=== PATIENT | male | born 1965 | race Caucasian/White ===

== ENCOUNTER 2019-12-14 08:25 | Outpatient (CLI) | payer MEDICARE, SELFPAY ==
--- NOTE | ~2019-12-14 | CT_ITS ---
EXAMINATION: CT soft tiss nk chst ab pel w EXAM DATE: 12/14/2019 09:21 INDICATION: Lymphadenopathy. Body swelling. TECHNIQUE: Spiral CT of the neck, chest, abdomen and pelvis was performed following intravenous injec tion of 100 mL Omnipaque 350. Axial, coronal and sagittal images of the neck were reviewed. Axial, coronal and sagittal images of the chest were reviewed. Coronal maximum intensity pixel images of ch est reviewed. Axial, coronal and sagittal images of the abdomen and pelvis were reviewed. The dose- length product (DLP) for this examination was 1977.11 mGy-cm. The exposure was tailored according to patient size (auto mA exposure control), and iterative reconstruction (ASIR) was used as additional dose reduction technique. There is no prior study for comparison. FINDINGS: NECK: The thyroid gland is unremarkable. There is a lymph node in the right posterior cervical tria ngle, level 5A, measuring 1.3 x 0.9 cm. This is the largest cervical lymph node identified and is bor derline enlarged. There is a left posterolateral suboccipital subcutaneous lymph node measuring 6 x 1 0 mm. The airway is unremarkable. Parapharyngeal and pre-glottic fat planes are preserved. The op acified vasculature is patent. Visualized sinuses and mastoid air cells are well aerated. There i s cervical spondylosis. CHEST: Dependent groundglass subsegmental atelectasis. There are no pleural or pericardial effusion s. There is a 6 mm nodule projecting into the lumen of the trachea from the anterior tracheal wall, about 2 cm above the david, which measures fat attenuation, but does appear to be a mass. Probably more likely benign given the density but attention to this on follow-up. Small amount of left lower l obe endobronchial debris. There is no mediastinal, hilar or axillary lymphadenopathy. There is no pneumothorax. Heart normal in size. No evidence of coronary arterial calcification. ABDOMEN PELVIS: The liver, spleen, adrenal glands and pancreas are unremarkable. Gallbladder is unre markable. No biliary obstruction. Portal and splenic veins are patent. Kidneys enhance symmetrical ly. There is no hydronephrosis. The prostate is unremarkable. The bladder is unremarkable. There is no retroperitoneal or pelvic lymphadenopathy. There is mild scattered arteriosclerotic disease. The appendix is normal. The stomach and small bowel are unremarkable. There is mild scattered coloni c diverticulosis. There is no adjacent inflammatory change to suggest diverticulitis. No free intra peritoneal gas. There are no osteoblastic or osteolytic lesions identified. Chronic bilateral L5 sp ondylolysis. Only 2 mm anterolisthesis L5 on S1. IMPRESSION: 1. Borderline enlarged right posterior cervical lymph node, some other smaller cervical lymph nodes. Clinical correlation and consider histologic sampling if indicated. 2. Note chest, abdomen or pelvis lymphadenopathy. Reviewed, dictated and finalized at location B. CTICIDE MAKER
[2019-12-14 10:19] LABS: Immunoglobulin A 305 mg/dL (70-400); Immunoglobulin G 793 mg/dL (700-1600)
[2019-12-14 11:19] LABS: Erythrocyte Sedimentation Rate 21 mm/hr (0-20)
== END 2019-12-14 08:26 | disposition home or self-care (01) ==
PROVIDERS: PCP Family Medicine; Visit Provider Internal Medicine Medical Oncology
DX: D72.819 Decreased white blood cell count, unspecified (principal); D64.9 Anemia, unspecified; R59.1 Generalized enlarged lymph nodes; R91.1 Solitary pulmonary nodule
CPT/HCPCS: 36415; 70491; 71260; 74177; 82784; 85652; Q9967

== ENCOUNTER 2020-05-29 07:05 | Outpatient (NON) | payer MEDICARE, SELFPAY ==
[2020-05-29 22:50] LABS: SARS-CoV-2 RNA PCR Negative
== END 2020-05-29 07:06 ==
PROVIDERS: PCP Family Medicine; Visit Provider Family Medicine
DX: R68.89 Other general symptoms and signs (principal); Z20.828 Contact with and (suspected) exposure to other viral communicable diseases
CPT/HCPCS: 87635; C9803; U0003

== ENCOUNTER 2022-07-19 21:00 | Emergency (ER) | payer MEDICARE, SELFPAY ==
[2022-07-19] VITALS (11 sets, daily range): BP systolic 119–152; BP diastolic 62–83; PULSE 92–118; RESP 14–20; TEMP 37.3; O2SAT 94–98
--- NOTE | 2022-07-19 22:22 | PC.NURSE ---
Patient states he tested positive for covid today and started to have fever, nausea, body aches, HOFFMAN and cough and congestion yesterday. Patient denies any cp or sob.
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
--- NOTE | 2022-07-19 23:50 | PC.NURSE ---
This nurse went into room to start IV and obtain blood and do EKG. Patient states I am going to have to leave, my is on her way to pick me up and its my only way home. I promise I will call my PCP in the morning. ERP notified and speaking with patient.
== END 2022-07-20 00:04 | disposition home or self-care (01) ==
PROVIDERS: Emergency Provider Emergency Medicine; PCP Family Medicine
DX: U07.1 COVID-19 (principal); E78.5 Hyperlipidemia, unspecified; K21.9 Gastro-esophageal reflux disease without esophagitis; D86.9 Sarcoidosis, unspecified; E53.8 Deficiency of other specified B group vitamins; E55.9 Vitamin D deficiency, unspecified; F41.9 Anxiety disorder, unspecified; F43.10 Post-traumatic stress disorder, unspecified; F33.9 Major depressive disorder, recurrent, unspecified; Z87.891 Personal history of nicotine dependence
CPT/HCPCS: 99283

== ENCOUNTER → 2022-12-01 10:44 | Outpatient (CLI) | payer OTHER, SELFPAY ==
--- NOTE | ~2022-12-01 | US_ITS ---
EXAMINATION: US thyroid DATE: 12/01/2022 10:57 INDICATION: Nontoxic goiter, unspecified. TECHNIQUE: Multiple ultrasound images of the thyroid were obtained. COMPARISON: None. FINDINGS: The right thyroid lobe measures 4.4 x 1.8 x 1.3 cm. The left thyroid lobe measures 3.7 x 1.6 x 1.6 c m. There is normal echotexture and echogenicity throughout the thyroid gland. No discrete nodules id entified. Normal vascular flow is present. IMPRESSION: 1. Normal thyroid. Reviewed, dictated and finalized at location A. VERY ROOM SUPERVISOR IMPRESSION: 1. Normal thyroid.
== END ==
PROVIDERS: PCP Family Medicine; Visit Provider Family Medicine
DX: E04.9 Nontoxic goiter, unspecified (principal)
CPT/HCPCS: 76536

== ENCOUNTER 2023-02-11 08:17 | Outpatient (CLI) | payer OTHER, SELFPAY ==
--- NOTE | 2023-03-02 19:15 | WPDHOMESLEEP ---
Sleep Study - Home Unattended Date of Study: 02/11/23 Ordering Provider: Apolonia Patel MD Interpreting Provider: Thea Ribeiro, DO Home Sleep Study Type: Watch PAT Height: 1.78 m Weight: 99.79 kg Body Mass Index: 31.5 Neck Circumference (inches): 17 [place]: 5 Reason for Sleep Study Heart palpitations, Sleep-onset insomnia Sleep History The patient is a 57-year-old male with anxiety, depression, PTSD, nightmares, psoriasis and history of tobacco use that had a sleep study ordered by his primary care for evaluation of sleep apnea the patient occasionally awakens from sleep short of breath. He rarely awakens at night with heartburn, belching or cough. He frequently snores but it is rarely loud enough that others complain. He rarely has trouble sleeping when he has a cold. He rarely wakes up gasping for air throughout the night. He denies having breathing problems at night observed by himself or others. He rarely sweats excessively at night. He occasionally has heart palpitations or irregular heartbeats during the night. He rarely falls asleep during the day and never while driving. He denies sleep paralysis and cataplexy. He denies having trouble at school or work due to sleepiness. He frequently experiences vivid dreamlike scenes upon awakening or falling asleep. He denies feeling afraid of going to sleep. He occasionally has nightmares and frequently remembers his dreams. He occasionally has thoughts racing through his mind. He occasionally feels sad or depressed. He occasionally has anxiety. He rarely has muscular tension. He rarely notices parts of his body jerk. He rarely kicks during the night. He denies having crawling and aching feelings in his legs and denies having leg pain during the night. He rarely grinds his teeth during sleep but never awakens with morning jaw pain. He is rarely bothered by pain during the day but never awakened by pain during the night. He rarely wakes up feeling stiff in the morning. He denies waking up with sore or achy muscles. He rarely wakes up with pain in the neck, spine or other joints. He goes to bed at midnight on both weekdays and weekends. It takes him 5-30 minutes to fall asleep. He wakes up 1-3 times throughout the night for unknown reasons but is able to fall back asleep relatively quickly. He wakes up between 5:29 a.m. on both weekdays and weekends. He typically gets 6-9 hours of sleep per night. He will stay in bed for 10 minutes after waking up in the morning. He currently lives with his . He does not consume any caffeinated beverages within 2 hours of bedtime. He does not engage in physical exercise before bedtime. He will read before falling asleep. He denies taking naps in the afternoon or the evening. He consumes 1 cup of coffee and 1 caffeinated tea per day. He quit smoking cigarettes 14 months ago. He denies alcohol and recreational drug use. [facility] Past Medical History Medical History Ankle fracture 1983 Anxiety Dyslipidemia GERD without esophagitis Hx of sarcoidosis Leukopenia Mild episode of recurrent major depressive disorder Nicotine use Psoriasis PTSD (post-traumatic stress disorder) Skull fracture 1968 Vitamin B12 deficiency Vitamin D deficiency Surgical History Surgical History History of ankle surgery Left ankle in the History of bone marrow biopsy 2015 or 2016 History of craniotomy 1968 - [place] teeth extracted Family History Family History Mother Hypertension Father Polymyalgia rheumatica Social History Social History Smoking status: Former smoker (<30 pack years) Tobacco type: cigarettes Smoking end date: 11/18/21 Additional smoking assessment comments: 1 shahla
[2023-03-02 19:26] VITALS: BMI 31.5
== END 2023-02-12 11:20 | disposition home or self-care (01) ==
LOC: ANHCSM 08:18
PROVIDERS: PCP Family Medicine; Visit Provider Family Medicine
DX: G47.10 Hypersomnia, unspecified (principal); R40.0 Somnolence
CPT/HCPCS: 95800

== ENCOUNTER 2024-08-01 11:20 | Outpatient (CLI) | payer OTHER, SELFPAY ==
[2024-08-01 12:14] LABS: Add Urine Microscopic? YES; Appearance Urine Clear (Clear); Bacteria Urine None Seen /hpf; Bilirubin Urine 1+ (Negative); Blood Urine Negative (Negative); Color Urine Dark Yellow (Yellow); Glucose Urine UA Negative (Negative); Ketones Urine Trace mg/dL (Negative); Leukocyte Esterase Ur Trace LEU/UL (Negative); Nitrate Urine Negative (Negative); Non Pathogenic Casts 0-2; Protein Urine Negative (Negative); RBC Urine 0-2 /hpf (0-2); Specific Grav Ur 1.026 (1.001-1.035); Squamous Epithelial Cell Urine None Seen /hpf (Few); WBC Urine 0-5 /hpf (0-3); pH Urine 5.5 (5.0-9.0)
[2024-08-01 12:14] LABS: Basophils Percent Auto 1.7 % (0.2-1.2); Eosinophils Absolute Auto 0.1 K/mm3 (0-0.3); Eosinophils Percent Auto 6.1 % (0-4.4); Hematocrit 35.3 % (42.0-52.0); Lymphocytes Absolute Auto 0.55 K/mm3 (0.9-3.2); Lymphocytes Percent Auto 47.8 % (18.3-44.2); Mean Corpuscular Hemoglobin 29.9 pg (26-34); Mean Corpuscular Volume 87.8 fl (80-100); Mean Platelet Volume 9.5 fl (7.4-10.4); Monocytes Absolute Auto 0.4 K/mm3 (0.1-0.6); Monocytes Percent Auto 31.3 % (2.6-8.5); Neutrophils Absolute Auto 0.2 K/mm3 (1.3-6.7); Neutrophils Percent Auto 13.1 % (45.5-73.1); Platelet Count Result 179 k/mm3 (150-375); Red Blood Count 4.02 M/mm3 (4.6-6.20); Red Cell Distribution Width 13.5 % (11.5-14.5)
[2024-08-01 12:45] LABS: Alanine Aminotransferase 17 U/L (6-50); Albumin Level 4.1 g/dL (3.5-5.1); Alkaline Phosphatase 66 U/L (38-126); Anion Gap 8 mmol/L (4-12); Aspartate Amino Transferase 23 U/L (17-59); Blood Urea Nitrogen 15 mg/dL (9-20); CRP 0.5 mg/dL (<1.0); Calcium 9.3 mg/dL (8.4-10.2); Carbon Dioxide 27 mmol/L (22-30); Chloride 103 mmol/L (98-107); Estimated Glomerular Filt Rate > 60; Glucose 131 mg/dL (65-110); Phosphorus 3.2 mg/dL (2.5-4.5); Potassium 3.9 mmol/L (3.4-5.0); Sodium 138 mmol/L (137-145); Uric Acid 7.8 mg/dL (3.5-8.5)
[2024-08-01 12:51] LABS: Immunoglobulin A 256 mg/dL (70-400); Rheumatoid Factor < 12.0 IU/ML (<12)
[2024-08-01 13:03] LABS: Erythrocyte Sedimentation Rate 24 mm/hr (0-20)
[2024-08-01 13:30] LABS: White Blood Count 1.2 K/mm3 (4.5-10.0)
[2024-08-03 15:12] LABS: Cyclic Citrullinated Peptide <16 UNITS
[2024-08-03 16:38] LABS: NIL 0.02 IU/mL; Quantiferon TB Plus, 1T NEGATIVE (NEGATIVE)
[2024-08-07 12:39] LABS: Angiotensin Converting Enzyme 47 U/L (9-67)
== END 2024-08-01 11:21 | disposition home or self-care (01) ==
PROVIDERS: PCP Family Medicine; Visit Provider Internal Medicine
DX: D72.819 Decreased white blood cell count, unspecified (principal)
CPT/HCPCS: 36415; 80053; 81001; 82164; 82784; 84100; 84550; 85025; 85652; 86038; 86039; 86140; 86200; 86430; 86480

== ENCOUNTER 2024-08-23 13:37 | Outpatient (CLI) | payer OTHER, SELFPAY ==
--- NOTE | ~2024-08-23 | CT_ITS ---
Clinical Indication: Sarcoidosis CT Scan of the Neck, Chest, Abdomen, with Contrast: Technique: Contiguous sections were acquired throughout the chest, abdomen, and pelvis after intraven ous administration of 100 cc of Omnipaque 350. Dose reduction technique was used on this scan by uti akrlying automated exposure control and iterative reconstruction technique. The dose-length product (DL P) was 1650.99 mGy-cm. Findings: No soft tissue mass or lymphadenopathy seen in the neck. Parapharyngeal fat preserved bilat erally. Submandibular glands and parotid glands are unremarkable. Visualized aerodigestive tract unre markable. Vascular structures in the neck enhance normally. Thyroid gland unremarkable. Orbits are unremarkable . Paranasal sinuses and mastoid air cells are clear. There is no evidence of any significant mediastinal, hilar or axillary lymphadenopathy. The mediastin al soft tissues appear normal. There is no evidence of pleural or pericardial effusion. The lungs are clear. No pulmonary nodules or infiltrates are noted. Probable minimal emphysema. The liver, pancreas, gallbladder, adrenals and kidneys are within normal limits. Spleen is enlarged, measuring 15.4 cm in length. No evidence of aortic aneurysm. No lymphadenopathy. Visualized bowel loops are unremarkable. No ascites. Impression: Probable minimal emphysema. Splenomegaly, of uncertain etiology. No lymphadenopathy seen. Reviewed, dictated and finalized at [facility]. N WINDER Impression: Probable minimal emphysema. Splenomegaly, of uncertain etiology. No lymphadenopathy seen.
== END 2024-08-23 13:38 | disposition home or self-care (01) ==
PROVIDERS: PCP Family Medicine; Visit Provider Internal Medicine
DX: D86.9 Sarcoidosis, unspecified (principal); R16.1 Splenomegaly, not elsewhere classified
CPT/HCPCS: 70491; 71260; 74160; Q9967

== ENCOUNTER 2024-08-28 10:22 | Outpatient (CLI) | payer OTHER, SELFPAY ==
[2024-08-28 11:05] LABS: Basophils Percent Auto 1.4 % (0.2-1.2); Eosinophils Percent Auto 1.4 % (0-4.4); Hematocrit 37.7 % (42.0-52.0); Hemoglobin 13.1 g/dL (14.0-18.0); Lymphocytes Absolute Auto 0.63 K/mm3 (0.9-3.2); Mean Corpuscular HGB Conc 34.7 g/dl (32-36); Mean Corpuscular Hemoglobin 30.9 pg (26-34); Mean Corpuscular Volume 88.9 fl (80-100); Mean Platelet Volume 9.3 fl (7.4-10.4); Monocytes Absolute Auto 0.5 K/mm3 (0.1-0.6); Monocytes Percent Auto 35.7 % (2.6-8.5); Neutrophils Absolute Auto 0.2 K/mm3 (1.3-6.7); Neutrophils Percent Auto 16.5 % (45.5-73.1); Platelet Count Result 207 k/mm3 (150-375); Red Blood Count 4.24 M/mm3 (4.6-6.20); Red Cell Distribution Width 15.2 % (11.5-14.5)
[2024-08-28 11:20] LABS: Add Urine Microscopic? YES; Appearance Urine Clear (Clear); Bacteria Urine None Seen /hpf; Bilirubin Urine 1+ (Negative); Blood Urine Negative (Negative); Color Urine Dark Yellow (Yellow); Glucose Urine UA Negative (Negative); Ketones Urine Trace mg/dL (Negative); Leukocyte Esterase Ur Trace LEU/UL (Negative); Mucus Urine Present /lpf; Need Manual Microscopic Reviewed; Nitrate Urine Negative (Negative); Non Pathogenic Casts 0-2; Protein Urine Trace mg/dL (Negative); RBC Urine 0-2 /hpf (0-2); Specific Grav Ur 1.031 (1.001-1.035); Squamous Epithelial Cell Urine None Seen /hpf (Few); WBC Urine 0-5 /hpf (0-3); pH Urine 5.5 (5.0-9.0)
[2024-08-28 11:47] LABS: Albumin Level 4.3 g/dL (3.5-5.1); Anion Gap 6 mmol/L (4-12); Blood Urea Nitrogen 19 mg/dL (9-20); CRP < 0.5 mg/dL (<1.0); Calcium 9.2 mg/dL (8.4-10.2); Carbon Dioxide 31 mmol/L (22-30); Chloride 101 mmol/L (98-107); Estimated Glomerular Filt Rate > 60; Glucose 126 mg/dL (65-110); Sodium 138 mmol/L (137-145)
[2024-08-28 13:11] LABS: Erythrocyte Sedimentation Rate 17 mm/hr (0-20)
[2024-08-28 13:14] LABS: White Blood Count 1.4 K/mm3 (4.5-10.0)
== END 2024-08-28 10:23 | disposition home or self-care (01) ==
PROVIDERS: PCP Family Medicine; Visit Provider Internal Medicine
DX: D72.819 Decreased white blood cell count, unspecified (principal)
CPT/HCPCS: 36415; 80069; 81001; 85025; 85652; 86140

== ENCOUNTER 2025-01-29 11:45 | Outpatient (CLI) | payer OTHER, SELFPAY ==
[2025-01-29 12:30] LABS: Basophils Percent Auto 1.7 % (0.2-1.2); Eosinophils Percent Auto 1.7 % (0-4.4); Hematocrit 36.5 % (42.0-52.0); Hemoglobin 12.4 g/dL (14.0-18.0); Lymphocytes Absolute Auto 0.53 K/mm3 (0.9-3.2); Lymphocytes Percent Auto 45.3 % (18.3-44.2); Mean Corpuscular Hemoglobin 31.2 pg (26-34); Mean Corpuscular Volume 91.7 fl (80-100); Mean Platelet Volume 9.4 fl (7.4-10.4); Monocytes Absolute Auto 0.4 K/mm3 (0.1-0.6); Monocytes Percent Auto 30.8 % (2.6-8.5); Neutrophils Absolute Auto 0.2 K/mm3 (1.3-6.7); Neutrophils Percent Auto 20.5 % (45.5-73.1); Platelet Count Result 202 k/mm3 (150-375); Red Blood Count 3.98 M/mm3 (4.6-6.20); Red Cell Distribution Width 14.1 % (11.5-14.5)
[2025-01-29 12:37] LABS: Add Urine Microscopic? YES; Appearance Urine Clear (Clear); Bacteria Urine None Seen /hpf; Bilirubin Urine 1+ (Negative); Blood Urine Negative (Negative); Color Urine Dark Yellow (Yellow); Glucose Urine UA Negative (Negative); Ketones Urine Trace mg/dL (Negative); Leukocyte Esterase Ur Negative LEU/UL (Negative); Nitrate Urine Negative (Negative); Non Pathogenic Casts 0-2; Protein Urine Trace mg/dL (Negative); RBC Urine 0-2 /hpf (0-2); Specific Grav Ur 1.036 (1.001-1.035); Squamous Epithelial Cell Urine None Seen /hpf (Few); WBC Urine 0-5 /hpf (0-3); pH Urine 6.5 (5.0-9.0)
[2025-01-29 12:47] LABS: Alanine Aminotransferase 17 U/L (6-50); Albumin Level 4.4 g/dL (3.5-5.1); Alkaline Phosphatase 64 U/L (38-126); Anion Gap 7 mmol/L (4-12); Aspartate Amino Transferase 24 U/L (17-59); Bilirubin,Total 1.2 mg/dL (0.2-1.3); Blood Urea Nitrogen 18 mg/dL (9-20); CRP 0.6 mg/dL (<1.0); Carbon Dioxide 30 mmol/L (22-30); Chloride 103 mmol/L (98-107); Estimated Glomerular Filt Rate > 60; Glucose 113 mg/dL (65-110); Phosphorus 3.7 mg/dL (2.5-4.5); Potassium 4.4 mmol/L (3.4-5.0); Sodium 140 mmol/L (137-145)
[2025-01-29 13:08] LABS: White Blood Count 1.2 K/mm3 (4.5-10.0)
[2025-01-29 13:11] LABS: Erythrocyte Sedimentation Rate 21 mm/hr (0-20)
--- OUTSIDE RECORDS SUMMARY | 2025-01-29 13:16 | XMS_ITS | Clinical Summary ---
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 Gender Identity Not on file Sexual Orientation Not on file Plan of Treatment Health Maintenance Due Date Last Done Comments Hepatitis C Virus (HCV) Screening 1965 TdaP Immunization 1966 Hepatitis B Immunization (1 of 3 - 19+ 3-dose series) 1985 Colonoscopy 2011 Colorectal Cancer Screening 2011 Cologuard 2016 Immunochemical Fecal Occult Blood 2016 Pneumococcal Immunization (50+ years) (1 of 1 - PCV) 2016 Zoster Immunization (1 of 2) 2016 PSA Discussion 2021 Influenza Immunization (#1) 06/18/20240 03/2021, 08/01/2020, 07/24/2020, Additional history exists SARS-COV-2 Immunization ( season) 2024 07/23/2021, 01/08/2021, 12/17/2020 Respiratory Syncytial Virus (RSV) Immunization (Adult) (1 - 1-dose 75+ series) 2041 Meningococcal Immunization (ACWY) Aged Out No longer eligible based on patient's age to complete this topic Pneumococcal Immunization Combined Aged Out No longer eligible based on patient's age to complete this topic Rotavirus Immunization Aged Out No lo nger eligible based on patient's age to complete this topic
--- OUTSIDE RECORDS SUMMARY | 2025-01-29 13:16 | XMS_ITS ---
Author Organization [facility] Address [address] [place] [address] Care Team Providers Care Barrel Handler Name Role Phone Amanda DAVE, Apol[place] Primary Care Provider Unavailable Candi Girard Unavailable [phone] REASON FOR VISIT OFFSET PRESSMAN Therapy Social History Sex Assigned At : Social History Observation Description Sex Assigned At Male Encounters Encounter Location Date Provider Diagnosis [facility] [place] [id number] [facility] [address] [place] [address] 01/26/2025 Candi Girard Plan Of Treatment Next Appt Details Provider Name:Candi bernardo, 03/09/2025 11:00:00 AM, [address], [facility] [address], [place], [address], Progress Notes * HANNY QUEZADADOB: [birth year] (59 yo M)Acc No.[id number]:01/26/2025 Patient: HANNY XIE :1965 A ge:59 Y S ex:Male Phone: Address:[place], [address] * * Date:
--- OUTSIDE RECORDS SUMMARY | 2025-01-29 13:17 | XMS_ITS | Patient Health Record ---
Author Organization [facility] Address [address] [place] [address] Care Team Providers Care Pick Up Name Role Phone Apolonia Patel MD Primary Care Provider Unavailable Candi Girard Unavailable [phone] Lucie Sainz Unavailable [phone] Mamta Gorman Unavailable [phone] Migration, Provider Unavailable Unavailable Allergies No Known Allergies Reason For Referral No Information Medications Medication SIG (Take, Route, Frequency, Duration) Notes Start Date End Date Status busPIRone HCl 10 MG 1 tablet in the morn ing and 2 tablets at bedtime Orally Twice a day for 30 days Active traZODone HCl 50 MG 1 tablet at bedtime Orally Once a day for 30 days As needed Active Hydrocortisone 2.50% External 12/20/2023 Active DULoxetine HCl 60 MG 2 capsules Oral griselda ly for 30 days Active Tacrolimus 0.1 % External 12/20/2023 Ac tive Cholecalciferol 1.25 MG (00548 UT) Oral 12/20/2023 Active Tadalafil 5 MG 1 tablet as needed Orally Once a day Active Clobetasol Propionate 0.05% External 12/20/2023 Active Clobetasol Propionate 0.05 % External 12/20/2023 Active Immunizations Vaccine Route Administration Date Status Comme nts Influenza, injectable, MDCK, preservative free Unknown 07/24/2020 Administered Influenza, unspecified formulation Unknown 07/18/2019 A dministered Influenza, unspecified formulation Unknown 08/01/2020 A dministered Moderna Covid-19 Vaccine 1st dose Unknown 02/04/2022 Ad ministered Novel [id number], preservative free Unknown 08/12/2018 Administered Pfizer Biontech Covid-19 Vac cine 2nd dose Unknown 12/17/2020 Administered Pfizer Biontech Covid-19 Vac cine 2nd dose Unknown 01/08/2021 Administered Pfizer Biontech Covid-19 Vac cine 2nd dose Unknown 07/23/2021 Administered Social History Tobacco Use: Social History Observation Description Date Details (start date - stop date) Former Smoker NA - NA Sex Assigned At : Social History Observation Description Sex Assigned At Male Household Question Answer Notes Marital status: Tobacco Control (Standard) Question Answer Notes Tobacco use: Former smoker Section Notes: Social History Substance Use Do you or have you ever smoked tobacco?: Former smoker How many years have you smoked tobacco?: 0 How much tobacco do you smoke?: None When did you quit smoking?: 1-5 years since last cigarette Do you or have you ever used any other forms of tobacco or nicotine?: No Do you or have you ever used e-cigarettes or vape?: Never used electronic cigarettes Do you or have you ever used smokeless tobacco?: Never used smokeless tobacco How much tobacco do you chew?: none What was the date of your most recent tobacco screening?: 05/21/2023 Has tobacco cessation counseling been provided?: No What is your level of alcohol consumption?: None How many years have you consumed alcohol?: 20 Have you ever been counseled for unhealthy alcohol use?: Yes Do you use any illicit or recreational drugs?: No Which illicit or recreational drugs have you used?: n/a Have you used IV drugs?: No What is your level of caffeine consumption?: Moderate Education and Occupation What is the highest grade or level of school you have completed or the highest degree you have received?: Associate degree: academic program Social History Substance Use Do you or have you ever smoked tobacco?: Former smoker How many years have you smoked tobacco?: 0 How much tobacco do you smoke?: None When did you quit smoking?: 1-5 years since last cigarette Do you or have you ever used any other forms of tobacco or nicotine?: No Do you or have you ever used e-cigarettes or vape?: Never used electronic cigarettes Do you or have you ever used smokeless tobacco?: Never used smokeless tobacco How much tobacco do you chew?: none What was the date of your most recent tobacco screening?: 05/21/2023 Has tobacco cessation counseling been provided?: No What is your level of alcohol consumption?: None How many years have you consumed alcohol?: 20 Have you ever been counseled for unhealthy alcohol use?: Yes Do you use any illicit or recreational drugs?: No Which illicit or recreational drugs have you used?: n/a Have you used IV drugs?: No What is your level of caffeine consumption?: Moderate Education and Occupation What is the highest grade or level of school you have completed or the highest degree you have received?: Associate degree: academic program Are you currently employed?: No Who is your employer?: n/a Marriage and Sexuality What is your relationship status?: Are you sexually active?: No Do you use protection during sex?: No How many children do you have?: 0 Home and Environment Are there any smokers in your house?: No Are there any guns present in your home?: No Advance Directive Do you have an advance directive?: No Do you have a medical power of informatics coordinator?: No Public Health and Travel Have you been to an area known to be high risk for COVID-19?: No In the 14 days before symptom onset, have you had close contact with a laboratory-confirmed COVID-19 while that case was ill?: No In the 14 days before symptom onset, have you had close contact with a person who is under investigation for COVID-19 while that person was ill?: No Do you reside in or have you traveled to an area where Ebola virus transmission is active?: No Other Education: 2 Year College Family history of heart disease?: No High blood pressure: No High Cholesterol: No High number of sexual partners: Yes History of inconsistent/no condom use: Yes Marital status: Gender Identity and LGBTQ Identity Sexual orientation: Straight or heterosexual Social History Substance Use Do you or have you ever smoked tobacco?: Former smoker How many years have you smoked tobacco?: 0 How much tobacco do you smoke?: None When did you quit smoking?: 1-5 years since last cigarette Do you or have you ever used any other forms of tobacco or nicotine?: No Do you or have you ever used e-cigarettes or vape?: Never used electronic cigarettes Do you or have you ever used smokeless tobacco?: Never used smokeless tobacco How much tobacco do you chew?: none What was the date of your most recent tobacco screening?: 05/21/2023 Has tobacco cessation counseling been provided?: No What is your level of alcohol consumption?: None How many years have you consumed alcohol?: 20 Have you ever been counseled for unhealthy alcohol use?: Yes Do you use any illicit or recreational drugs?: No Which illicit or recreational drugs have you used?: n/a Have you used IV drugs?: No What is your level of caffeine consumption?: Moderate Education and Occupation What is the highest grade or level of school you have completed or the highest degree you have received?: Associate degree: academic program Are you currently employed?: No Who is your employer?: n/a Marriage and Sexuality What is your relationship status?: Are you sexually active?: No Do you use protection during sex?: No How many children do you have?: 0 Home and Environment Are there any smokers in your house?: No Are there any guns present in your home?: No Advance Directive Do you have an advance directive?: No Do you have a medical power of informatics coordinator?: No Gender Identity and LGBTQ Identity Sexual orientation: Straight or heterosexual Social History Substance Use Do you or have you ever smoked tobacco?: Former smoker How many years have you smoked tobacco?: 0 How much tobacco do you smoke?: None When did you quit smoking?: 1-5 years since last cigarette Do you or have you ever used any other forms of tobacco or nicotine?: No Do you or have you ever used e-cigarettes or vape?: Never used electronic cigarettes Do you or have you ever used smokeless tobacco?: Never used smokeless tobacco How much tobacco do you chew?: none What was the date of your most recent tobacco screening?: 05/21/2023 Has tobacco cessation counseling been provided?: No What is your level of alcohol consumption?: None How many years have you consumed alcohol?: 20 Have you ever been counseled for unhealthy alcohol use?: Yes Do you use any illicit or recreational drugs?: No Which illicit or recreational drugs have you used?: n/a Have you used IV drugs?: No What is your level of caffeine consumption?: Moderate Education and Occupation What is the highest grade or level of school you have completed or the highest degree you have received?: Associate degree: academic program Are you currently employed?: No Who is your employer?: n/a Marriage and Sexuality What is your relationship status?: Are you sexually active?: No Do you use protection during sex?: No How many children do you have?: 0 Home and Environment Are there any smokers in your house?: No Are there any guns present in your home?: No Advance Directive Do you have an advance directive?: No Do you have a medical power of informatics coordinator?: No Gender Identity and LGBTQ Identity Sexual orientation: Straight or heterosexual Problems Problem Type SNOMED Code ICD Code Onset Dates Problem Status W/U Status Risk Notes Problem Vitamin D deficiency (98420093) Vitamin D deficiency, unspecified (E55.9) 4 Active confirmed Problem Mild recurrent major depression (77547490) Major depressive disorder, recurrent, mild (F33.0) 4 Active confirmed Problem Generalized anxiety disorder (83934343) Generalized anxiety disorder (F41.1) 4 Active confirmed Problem Posttraumatic stress disorder (03965597) Post-traumatic stress disorder, chronic (F43.12) 4 Active confirmed Problem Insomnia disorder related to another mental disorder (39546666) Insomnia due to other mental disorder (F51.05) Active confirmed Vital Signs Heart Rate 110 /min 12/11/2024 Height-cm 177.80 cm 12/11/2024 Blood pressure diastolic 72 mm Hg 12/11/2024 Weight-kg 94.8 kg 12/11/2024 Height 70.00 in 12/11/2024 Blood pressure systolic 116 mm Hg 12/11/2024 Weight 209 lbs 12/11/2024 BMI 29.99 kg/m2 12/11/2024 Encounters Encounter Location Date Provider Diagnosis [facility] [address] [facility] [address] [place] [address] 03/21/2024 Mamta Gorman [facility] [address] [facility] [address] [place] [address] 03/29/2024 Mamta Gorman Major depressive disorder, recurrent, mild F33.0 ; Generalized anxiety disorder F41.1 ; Post-traumatic stress disorder, chronic F43.12 and Vitamin D deficiency, unspecified E55.9 [facility] [address] [facility] [address] [place] [address] 06/29/2024 Mamta Gorman Major depressive disorder, recurrent, mild F33.0 ; Generalized anxiety disorder F41.1 ; Post-traumatic stress disorder, chronic F43.12 and Vitamin D deficiency, unspecified E55.[address] [address] 07/27/2024 Mamta Gilmarcatrachito Major depressive disorder, recurrent, mild F33.0 ; Generalized anxiety disorder F41.1 ; Post-traumatic stress disorder, chronic F43.12 and Vitamin D deficiency, unspecified E55.[address] [address] 10/27/2024 Candi Girard [address] [address] 10/30/2024 Candi Girard Post-traumatic stress disorder, chronic F43.12 ; Insomnia due to other mental disorder F51.05 ; Generalized anxiety disorder F41.1 ; Major depressive disorder, recurrent, mild F33.0 and Vitamin D deficiency, unspecified E55.[address] [address] 12/11/2024 Candi Girard Post-traumatic stress disorder, chronic F43.12 ; Insomnia due to other mental disorder F51.05 ; Generalized anxiety disorder F41.1 ; Major depressive disorder, recurrent, mild F33.0 and Vitamin D deficiency, unspecified E55.[address] [address] 01/26/2025 Candi Girard [address] [address] 03/04/2024 Provider Migration [address] [address] 03/05/2024 Provider Migration [address] [address] 03/23/2024 Lucie Sainz Assessments Encounter Date Diagnosis (ICD Code) Assessment Notes Treatment Notes Treatment Clinical Notes Section Notes 03/29/2024 Major depressive disorder, recurrent, mild (ICD-10 - F33.0) cont duloxetine 120mg daily stable continue current meds f/u in 3 months, earlier if concerns notes: -hx dizzy with higher dose prazosin-NO BZO, past note: states had lorazepam in past, had issue of storing it up and taking big doses, addictive, so took off and did buspar 03/29/2024 Generalized anxiety disorder (ICD-10 - F41.1) cont buspirone 10mg BID 06/29/2024 Major depressive disorder, recurrent, mild (ICD-10 - F33.0) cont duloxetine 120mg daily stable, no longer taking prazosin d/t urology concern for interaction with cialis wants to taper quetiapine, discuss r/b/se, discontinuation effects, risk of sx exacerbation. can try benadryl 25mg (or 1/2 tab) short term if difficulty sleeping. he would also like to prophylactically increase buspar to 20mg at night, used to take that way in past with 10mg qam. Education on meds and treatment course. f/u in 1 month, earlier if concerns notes: -hx dizzy with higher dose prazosin-NO BZO, past note: states had lorazepam in past, had issue of storing it up and taking big doses, addictive, so took off and did buspar 07/27/2024 Major depressive disorder, recurrent, mild (ICD-10 - F33.0) cont duloxetine 120mg daily overall success with changes, need more time to adjust sleep, some anxiety from outside stressors but manageable. discuss options, shared decision to cont as is for now, education meds and treatment course. f/u in 3 month, earlier if concerns -discussed transition to new provider as I am leaving the practice after this month notes: -hx dizzy with higher dose prazosin-NO BZO, past note: states had lorazepam in past, had issue of storing it up and taking big doses, addictive, so took off and did buspar 10/30/2024 Post-traumati c stress disorder, chronic (ICD-10 - F43.12) Insomnia - Patient reports difficulty staying asleep, waking up at night, and feeling tired throughout the day Plan: - Start trazodone 50 mg 1-2 tablets at bedtime PTSD/Nightmares - Patient experiences nightmares several times a week, distrubing his sleep further Plan: - Encourage patient to discuss concerns with urologist - Monitor for potential improvement in nightmares on trazodone Anxiety - Patient reports more anxiety than depression, with difficulty concentrating on some days Plan: - Continue buspirone 10 mg three times a day - Instruct patient to stagger buspirone doses throughout the day, see if not at bedtime makes a difference Depression - mood okay , relatively stable in light of sleep concerns presently Plan: - Continue duloxetine 60 mg 2 tablets daily Hypotension - Blood pressure 90/60, reports occasional lightheadedness and dizziness Plan: - Monitor blood pressure - Discuss with urologist about adjusting prostate medications or procedures Follow-up in 4 to 6 weeks to assess sleep improvement and any updates from neurology 10/30/2024 Insomnia due to other mental disorder (ICD-10 - F51.05) Insomnia - Patient reports difficulty staying asleep, waking up at night, and feeling tired throughout the day Plan: - Start trazodone 50 mg 1-2 tablets at bedtime PTSD/Nightmares - Patient experiences nightmares several times a week, distrubing his sleep further Plan: - Encourage patient to discuss concerns with urologist - Monitor for potential improvement in nightmares on trazodone Anxiety - Patient reports more anxiety than depression, with difficulty concentrating on some days Plan: - Continue buspirone 10 mg three times a day - Instruct patient to stagger buspirone doses throughout the day, see if not at bedtime makes a difference Depression - mood okay , relatively stable in light of sleep concerns presently Plan: - Continue duloxetine 60 mg 2 tablets daily Hypotension - Blood pressure 90/60, reports occasional lightheadedness and dizziness Plan: - Monitor blood pressure - Discuss with urologist about adjusting prostate medications or procedures Follow-up in 4 to 6 weeks to assess sleep improvement and any updates from neurology 12/11/2024 Post-traumati c stress disorder, chronic (ICD-10 - F43.12) Insomnia - Sleeping better, finding 1 trazodone to be beneficial without causing morning fatigue Plan: - Continue trazodone 50 mg 1 tablet at bedtime as needed PTSD/Nightmares - Patient experiences nightmares several times a week, distrubing his sleep further - Unable to take prazosin due to being on tadafinil - Sleep has been better with trazodone, nightmares not as disruptive Plan: - Monitor for potential improvement in nightmares on trazodone Anxiety and Depression - Patient reports more anxiety and depression due to situational factors, managing Plan: - Continue buspirone 10 mg three times a day - Continue duloxetine 60 mg 2 tablets daily Follow-up in 3 months, sooner if concerns arise 12/11/2024 Insomnia due to other mental disorder (ICD-10 - F51.05) Insomnia - Sleeping better, finding 1 trazodone to be beneficial without causing morning fatigue Plan: - Continue trazodone 50 mg 1 tablet at bedtime as needed PTSD/Nightmares - Patient experiences nightmares several times a week, distrubing his sleep further - Unable to take prazosin due to being on tadafinil - Sleep has been better with trazodone, nightmares not as disruptive Plan: - Monitor for potential improvement in nightmares on trazodone Anxiety and Depression - Patient reports more anxiety and depression due to situational factors, managing Plan: - Continue buspirone 10 mg three times a day - Continue duloxetine 60 mg 2 tablets daily Follow-up in 3 months, sooner if concerns arise 10/30/2024 Generalized anxiety disorder (ICD-10 - F41.1) Insomnia - Patient reports difficulty staying asleep, waking up at night, and feeling tired throughout the day Plan: - Start trazodone 50 mg 1-2 tablets at bedtime PTSD/Nightmares - Patient experiences nightmares several times a week, distrubing his sleep further Plan: - Encourage patient to discuss concerns with urologist - Monitor for potential improvement in nightmares on trazodone Anxiety - Patient reports more anxiety than depression, with difficulty concentrating on some days Plan: - Continue buspirone 10 mg three times a day - Instruct patient to stagger buspirone doses throughout the day, see if not at bedtime makes a difference Depression - mood okay , relatively stable in light of sleep concerns presently Plan: - Continue duloxetine 60 mg 2 tablets daily Hypotension - Blood pressure 90/60, reports occasional lightheadedness and dizziness Plan: - Monitor blood pressure - Discuss with urologist about adjusting prostate medications or procedures Follow-up in 4 to 6 weeks to assess sleep improvement and any updates from neurology 07/27/2024 Generalized anxiety disorder (ICD-10 - F41.1) cont buspirone 10mg qam and 20mg qhs consider counseling 06/29/2024 Generalized anxiety disorder (ICD-10 - F41.1) increase buspirone 10mg qam and 20mg qhs 03/29/2024 Post-traumati c stress disorder, chronic (ICD-10 - F43.12) cont prazosin 1 mg qhs cont quetiapine 50mg qhs-SEND TO [facility]-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 06/29/2024 Post-traumati c stress disorder, chronic (ICD-10 - F43.12) stopped prazosin decrease quetiapine to 25mg qhs and stop when able (adjust to sleep etc; can break to 12.5mg as well) *SEND TO [facility]-prefers their [employer] [facility] -can use benadryl, unisom short term if trouble sleeping prioritize good sleep hygiene 07/27/2024 Post-traumati c stress disorder, chronic (ICD-10 - F43.12) no nightmares currently prioritize good sleep hygiene 10/30/2024 Major depressive disorder, recurrent, mild (ICD-10 - F33.0) Insomnia - Patient reports difficulty staying asleep, waking up at night, and feeling tired throughout the day Plan: - Start trazodone 50 mg 1-2 tablets at bedtime PTSD/Nightmares - Patient experiences nightmares several times a week, distrubing his sleep further Plan: - Encourage patient to discuss concerns with urologist - Monitor for potential improvement in nightmares on trazodone Anxiety - Patient reports more anxiety than depression, with difficulty concentrating on some days Plan: - Continue buspirone 10 mg three times a day - Instruct patient to stagger buspirone doses throughout the day, see if not at bedtime makes a difference Depression - mood okay , relatively stable in light of sleep concerns presently Plan: - Continue duloxetine 60 mg 2 tablets daily Hypotension - Blood pressure 90/60, reports occasional lightheadedness and dizziness Plan: - Monitor blood pressure - Discuss with urologist about adjusting prostate medications or procedures Follow-up in 4 to 6 weeks to assess sleep improvement and any updates from neurology 12/11/2024 Generalized anxiety disorder (ICD-10 - F41.1) Insomnia - Sleeping better, finding 1 trazodone to be beneficial without causing morning fatigue Plan: - Continue trazodone 50 mg 1 tablet at bedtime as needed PTSD/Nightmares - Patient experiences nightmares several times a week, distrubing his sleep further - Unable to take prazosin due to being on tadafinil - Sleep has been better with trazodone, nightmares not as disruptive Plan: - Monitor for potential improvement in nightmares on trazodone Anxiety and Depression - Patient reports more anxiety and depression due to situational factors, managing Plan: - Continue buspirone 10 mg three times a day - Continue duloxetine 60 mg 2 tablets daily Follow-up in 3 months, sooner if concerns arise 03/29/2024 Vitamin D deficiency, unspecified (ICD-10 - E55.9) most recent level: Vit D 51.3Vitamin D supplementation (per PCP) 12/11/2024 Major depressive disorder, recurrent, mild (ICD-10 - F33.0) Insomnia - Sleeping better, finding 1 trazodone to be beneficial without causing morning fatigue Plan: - Continue trazodone 50 mg 1 tablet at bedtime as needed PTSD/Nightmares - Patient experiences nightmares several times a week, distrubing his sleep further - Unable to take prazosin due to being on tadafinil - Sleep has been better with trazodone, nightmares not as disruptive Plan: - Monitor for potential improvement in nightmares on trazodone Anxiety and Depression - Patient reports more anxiety and depression due to situational factors, managing Plan: - Continue buspirone 10 mg three times a day - Continue duloxetine 60 mg 2 tablets daily Follow-up in 3 months, sooner if concerns arise 10/30/2024 Vitamin D deficiency, unspecified (ICD-10 - E55.9) Insomnia - Patient reports difficulty staying asleep, waking up at night, and feeling tired throughout the day Plan: - Start trazodone 50 mg 1-2 tablets at bedtime PTSD/Nightmares - Patient experiences nightmares several times a week, distrubing his sleep further Plan: - Encourage patient to discuss concerns with urologist - Monitor for potential improvement in nightmares on trazodone Anxiety - Patient reports more anxiety than depression, with difficulty concentrating on some days Plan: - Continue buspirone 10 mg three times a day - Instruct patient to stagger buspirone doses throughout the day, see if not at bedtime makes a difference Depression - mood okay , relatively stable in light of sleep concerns presently Plan: - Continue duloxetine 60 mg 2 tablets daily Hypotension - Blood pressure 90/60, reports occasional lightheadedness and dizziness Plan: - Monitor blood pressure - Discuss with urologist about adjusting prostate medications or procedures Follow-up in 4 to 6 weeks to assess sleep improvement and any updates from neurology 07/27/2024 Vitamin D deficiency, unspecified (ICD-10 - E55.9) vitamin D supplementation (per PCP) 06/29/2024 Vitamin D deficiency, unspecified (ICD-10 - E55.9) vitamin D supplementation (per PCP) 12/11/2024 Vitamin D deficiency, unspecified (ICD-10 - E55.9) Insomnia - Sleeping better, finding 1 trazodone to be beneficial without causing morning fatigue Plan: - Continue trazodone 50 mg 1 tablet at bedtime as needed PTSD/Nightmares - Patient experiences nightmares several times a week, distrubing his sleep further - Unable to take prazosin due to being on tadafinil - Sleep has been better with trazodone, nightmares not as disruptive Plan: - Monitor for potential improvement in nightmares on trazodone Anxiety and Depression - Patient reports more anxiety and depression due to situational factors, managing Plan: - Continue buspirone 10 mg three times a day - Continue duloxetine 60 mg 2 tablets daily Follow-up in 3 months, sooner if concerns arise 03/29/2024 Other Plan Of Treatment Next Appt Details Provider Name:Candi Bertrand tova, 03/09/2025 11:00:00 AM, [facility] [address], [facility] [address], [place], [address], Insurance Providers Payer Name Payer Address Payer Phone Subscriber Number Group Number Insured Name Patient Relationship to Insured Coverage Start Date Coverage End Date [employer] Medicare Replacement/ Advantage - Hmo [address] [place] [phone] [id number] HANNY QUEZADA Self - patient is the insured [place] [address] [place] [phone] [id number] HANNY QUEZADA Self - patient is the insured Medical (General) History Medical History History ICD Code Generalized anxiety disorder Mild recurrent major depression Obesity Posttraumatic stress disorder Psoriasiform dermatitis Vitamin D deficiency Surgical History Surgery Date(Month/Year) Neurosurgery 04/17/1969 Any surgical history 09/17/1983
--- OUTSIDE RECORDS SUMMARY | 2025-01-29 13:17 | XMS_ITS | Clinical Summary ---
Author Organization [facility] Address [address] [place] [address] Care Team Providers Care Funeral Home Attendant Name Role Phone Unknown, Provider Primary Care Provider Unavaila ble Source Comments [facility],non-owned Affiliates and Associated Physician Practices is amultiple site organization consisting of ambulatory clinics and hospital sitesin [place], [place], [place] and [place]. This disclosure is being madepursuant to the Care Everywhere program and may not contain all information available regarding this patient. Last updated 18.[facility] Clicker Allergies Active Allergy Reactions Criticality Noted Date Comments Penicillins Urticaria Medium 05/18/2017 Sulfa Drugs Urticaria Medium 05/18/2017 Medications * Be aware that medications may not be up to date on this document. Alwaysverify current medications with the patient. busPIRone (Buspar) 10 MG tablet TAKE 1 TABLET BY MOUTH IN THE MORNING AND 2 EVERY DAY AT BEDTIME 3 Active DULoxetine (Cymbalta) 60 MG capsule Take 2 (two) capsules by mouth once daily 3 Active ergocalciferol (Drisdol) 1.25 MG (08764 UT) capsule Take 1 (one) capsule by mouth 2 Active prazosin (Minipress) 2 MG capsule TAKE 1 CAPSULE BY MOUTH ONCE DAILY AT NIGHT AT BEDTIME 3 Active predniSONE (Deltasone) 10 MG tablet Take 1 (one) tablet by mouth once daily 3 Active QUEtiapine (SEROquel) 50 MG tablet TAKE 1 TABLET BY MOUTH EVERY DAY AT BEDTIME FOR 30 DAYS 3 Active tacrolimus (Protopic) 0.1 % ointmentIndica tions:Other psoriasis Apply to armpits and groin two times daily. 30 days supply. 100 g 11 3 Active clobetasol (Temovate) 0.05 % ointmentIndica tions:Other psoriasis Apply to pink itchy areas on back, chest, arms and legs twice daily PRN. 30 days supply. 60 g 11 3 Active clobetasol (Temovate) 0.05 % solutionIndica tions:Other psoriasis Apply pink itchy areas on scalp BID PRN. 30 days supply. 50 mL 11 3 Active HUMIRA PEN-PS/UV/ADOL HS START 80 MG/0.8ML & 40MG/0.4ML PNKT starter kit (citrate-free) Indications:Pl aque Psoriasis Inject 80mg under the skin on day 1, then 40mg under the skin on day 8 (For starter dose) Reasons: Plaque Psoriasis 1 Each 3 Active adalimumab (Humira Pen) 40 MG/0.4ML injectionIndic ations:Plaque Psoriasis Inject 0.4 mL subcutaneously every 14 days (starting on Day 22) and thereafter for maintenance dose Reasons: Plaque Psoriasis 1 kit 3 3 Active Active Problems Problem Noted Date Diagnosed Date Psoriasis 03/18/2023 High risk medication use 03/18/2023 Social History Tobacco Use Types Packs/Day Years Used Date Smoking Tobacco: Never Assessed Sex and Gender Information Value Date Recorded Sex Assigned at Not on file 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 Gender Identity Not on file Sexual Orientation Not on file Plan of Treatment Health Maintenance Due Date Last Done Comments COLOGUARD (AGES 45-75) - COL ON CA SCREENING 1966 COLON MONITORING 1966 COLONOSCOPY - COLON CA SCREENING 1966 CT COLONOGRAPHY - COLON CA SCREENING 1966 Colorectal Cancer Screening 1966 FIT - COLON CA SCREENING 1966 FLEX SIG - COLON CA SCREENING 1966 LIPID TESTING 1966 MEDICARE AWV 12 MONTHS 1966 HIV SCREENING 1981 HEPATITIS C SCREENING 11/04/1984 DTAP/TDAP/TD VACCINES (1 - Tdap) 1985 HEPATITIS B VACCINE (1 of 3 - 19+ 3-dose series) 1985 PNEUMOCOCCAL VACCINE 50+ (1 of 1 - PCV) 2016 ZOSTER VACCINE (1 of 2) 2016 COVID-19 VACCINE (3 - 2023-2 5 season) 2024 01/12/2021, 12/22/2020 DEPRESSION SCREENING 10/18/2024 INFLUENZA VACCINE (Season Ended) 2025 08/01/2020, 07/18/2019, 10/22/2017 HIB VACCINE Aged Out No longer eligi ble based on patient's age to complete this topic HPV VACCINE Aged Out No longer eligi ble based on patient's age to complete this topic MENINGOCOCCAL (Group B) VACCINE SHARED DECISION-MAKING Aged Out No longer eligible based on patient's age to complete this topic MENINGOCOCCAL GROUPS A/C/Y/W VACCINE Aged Out No longer eligible b ased on patient's age to complete this topic Insurance [employer] E[employer] Care Teams Funeral Home Attendant Relationship Specialty Start Date End Date Unknown, Provider PCP - General 03/18/23
[2025-01-31 15:58] LABS: Angiotensin Converting Enzyme 45 U/L (9-67)
== END 2025-01-29 11:46 | disposition home or self-care (01) ==
LOC: ANHLAB 11:47
PROVIDERS: PCP Family Medicine; Visit Provider Internal Medicine
DX: L40.9 Psoriasis, unspecified (principal); Z79.899 Other long term (current) drug therapy
CPT/HCPCS: 36415; 80053; 81001; 82164; 84100; 85025; 85652; 86140

== ENCOUNTER 2025-04-17 10:24 | Outpatient (CLI) | payer OTHER, SELFPAY ==
--- OUTSIDE RECORDS SUMMARY | 2025-04-17 10:38 | XMS_ITS | Clinical Summary ---
Author Organization [facility] Address [address] [facility] [place] [address] Care Team Providers Care Level Vial Inspector And Tester Name Role Phone Apolonia Patel MD Primary Care Provider Sim Garza DO Unavailable [phone] Farrah Santoro MD Unavailable [phone] Allergies Active Allergy Reactions Criticality Noted Date Comments Penicillins Hives Medium 05/18/2017 Sulfa (Sulfonamide Antibiotics) Hives Medium 10/[address] (CYMBALTA) 60 mg capsule 2 capsules (120 mg total) 2 60 mg tabs daily 0 Active cyanocobalamin (Vitamin B-12) 1,000 mcg tabletIndicati ons:Prevention of Vitamin B12 Deficiency Take 1 tablet (1,000 mcg total) by mouth daily 90 tablet 1 0 Active ergocalciferol (VITAMIN D) 50,000 unit capsule Take 1 capsule (50,000 Units total) by mouth once a week 2 Active tadalafiL (CIALIS) 5 mg tablet Take 1 tablet (5 mg total) by mouth daily 4 Active tamsulosin (FLOMAX) 0.4 mg extended release capsule Take 1 capsule (0.4 mg total) by mouth nightly as needed 4 Active guselkumab (Tremfya) 200 mg/2 mL syringeIndicat ions:Moderate to Severe Plaque Psoriasis Inject 100 mg under the skin as directed Active predniSONE (DELTASONE) 10 mg tablet Take 1 tablet (10 mg) by mouth daily 5 Active traZODone (DESYREL) 50 mg tablet 5 Active hydrocortisone (ANUSOL-HC) 25 mg suppositoryInd ications:Hemor rhoids Insert 1 suppository (25 mg total) into the rectum 2 (two) times a day 12 suppository 5 Active folic acid (FOLVITE) 1 mg tablet Take 1 tablet (1 mg total) by mouth daily 90 tablet 1 5 Active Active Problems Problem Noted Date Diagnosed Date Pancytopenia 05/28/2022 Neutropenia 07/26/2018 Encounters Date Type Department Care Team Description 03/30/2025 Telephone [facility] Oncology [facility] Floor 1, [address] [place] [address] Francisco Snow RN 02/28/2025 Telephone [facility] Oncology [address] [place] [address] [address] [place] [address] Holly Parekh RN 02/27/2025 Results Follow-Up [facility] Oncology [address] [place] [address] [address] [place] [address] Holly Parekh RN Iron profile w/ IBC, Ferritin, Reticulocyte Count, Additional followed-up results: 3 02/23/2025 10:15 AM CDT Office Visit [facility] Oncology [address] [place] [address] [address] [place] [address] Sim Garza DO Pancytopenia (HCC) (Primary Dx); Other neutropenia 02/22/2025 Telephone [facility] Oncology [address] [place] [address] [address] [place] [address] Elsy Ledezma, LOWELL from Last 3 Months Immunizations Immunization Administration Dates Next Due Influenza, Unspecified 08/01/2020,07/18/2019,02/2018 Pfizer SARS-CoV-2 Monovalent Vaccination (12+ Yrs) PURPLE 01/12/2021,12/22/2020 ZOSTER LIVE 10/22/2017,05/21/2017 Medical History Medical History Date Comments Prostate disorder Social History Tobacco Use Types Packs/Day Years Used Date Smoking Tobacco: Every Day Cigarettes 0.2 0.4 Started: 11/26/2024; Last attempted to quit: 04/26/2020 Smokeless Tobacco: Never Tobacco Cessation:Ready to Q uit: Not Asked; Counseling Given: Not Answered AUDIT-C Answer Date Recorded Q1: How often do you have a drink containing alc ohol? 2-4 times a month 12/01/2024 Q2: How many drinks containi ng alcohol do you have on a typical day when you are drinking? 3 or 4 12/01/2024 Q3: How often do you have si x or more drinks on one occasion? 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 Gender Identity Not on file Sexual Orientation Not on file Obstetrics History Last Filed Vital Signs Vital Sign Reading Time Taken Comments Blood Pressure 146/70 02/23/2025 10:12 AM CDT Pulse 77 02/23/2025 10:12 AM CDT Temperature 36.9 C (98.5 F) 02/23/2025 10:12 AM CDT Respiratory Rate 16 02/23/2025 10:12 AM CDT Oxygen Saturation 97% 02/23/2025 10:12 AM CDT Inhaled Oxygen Concentration - - Weight 94.6 kg (208 lb 8.9 oz) 02/23/2025 10:12 AM CDT Height 176.5 cm (5' 9.5) 12/01/2024 10:19 AM CS T Body Mass Index 30.36 12/01/2024 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 Plan of Treatment Health Maintenance Due Date Last Done Comments Colon Cancer Screening-Colonoscopy 1966 Depression Screening 1966 Hepatitis C Screening 1966 Prostate Cancer Screening-PSA 1966 DTaP/Tdap/Td Vaccine (1 - Tdap) 1977 Hepatitis B Screening 1984 Regular Well Visit/Exam 18-64 1984 Pneumococcal vaccine <65 (1 of 2 - PCV) 1985 Zoster Vaccine (1 of 2) 12/17/2017 10/22/2017, 05/21 Covid-19 Vaccine (5 - 2023-2 5 season) 2024 02/04/2022, 07/23/2021, 01/12/2021, Additional history exists Influenza Vaccine (#1) 2025 , 07/24/2020, 07/18/2019, Additional history exists Procedures Procedure Name Priority Date/Time Associated Diagnosis Comments CBC WITH AUTO DIFFERENTIAL Routine 03/29/2025 11:05 AM CDT Pancytopenia (HCC) FOLATE Routine 02/26/2025 2:00 PM CDT Pancytopenia (HCC) Other neutropenia VITAMIN B12 Routine 02/26/2025 2:00 PM CDT Pancytopenia (HCC) Other neutropenia RETICULOCYTES Routine 02/26/2025 2:00 PM CDT Pancytopenia (HCC) Other neutropenia FERRITIN Routine 02/26/2025 2:00 PM CDT Pancytopenia (HCC) Other neutropenia IRON PROFILE W/ IBC Routine 02/26/2025 2 :00 PM CDT Pancytopenia (HCC) Other neutropenia CBC WITH AUTO DIFFERENTIAL Routine 02/21/2025 1:51 PM CDT Pancytopenia (HCC) Other neutropenia URINALYSIS Routine 01/29/2025 1:18 PM CDT CMP Routine 01/29/2025 1:18 PM CDT from Last 3 Months Results * (ABNORMAL) CBC with auto differential (03/29/2025 11:05 AM CDT) WBC 1.1(LL) 3.4 - 10.8 x10E3/uL [facility] - 01 RBC 3.96(L) 4.14 - 5.80 x10E6/uL [facility] - 01 Hgb 12.6(L) 13.0 - 17.7 g/dL [facility] - 01 Hct 36.9(L) 37.5 - 51.0 % [facility] - 01 MCV 93 79 - 97 fL [facility] - 01 MCH 31.8 26.6 - 33.0 pg [facility] - 01 MCHC 34.1 31.5 - 35.7 g/dL [facility] - 01 Rdw 13.9 11.6 - 15.4 % [facility] - 01 Platelets 215 150 - 450 x10E3/uL [facility] - 01 Neutrophils pct 23 Not Estab. % [facility] - 01 Lymphs pct 43 Not Estab. % [facility] - 01 Monocytes pct 32 Not Estab. % [facility] - 01 Eosinophils pct 1 Not Estab. % [facility] - 01 Basophil pct 1 Not Estab. % [facility] - 01 Neutrophil abs 0.2(<) 1.4 - 7.0 x10E3/uL [facility] - 01 Lymphs (Absolute) 0.5(L) 0.7 - 3.1 x10E3/uL [facility] - 01 Monocyte abs 0.3 0.1 - 0.9 x10E3/uL [facility] - 01 Eosinophils, abs 0.0 0.0 - 0.4 x10E3/uL [facility] - 01 Basophils, abs 0.0 0.0 - 0.2 x10E3/uL [facility] - 01 Immature Granulocytes 0 Not Estab. % [facility] - 01 Immature Grans (Abs) 0.0 0.0 - 0.1 x10E3/uL [facility] - 01 Hematology Comments: Note: [facility] - 01 Comment:Verified by microsco pic examination. Blood 03/29/2025 11:0 5 AM CDT 03/29/2025 Narrative [facility] - 03/30/2025 6:09 AM CDT Performed at: [address] [place], [place] [address] [id number] Physical Scientist: Brodie Batista PhD, Phone: [phone] Specimen Comment: Called/faxed to Francisco Snow on 03/30/2025 at 06:03 ET for Specimen Comment: test Neutrophils (Absolute) us Sim Garza DO LAB BLOOD ORDERABLES Final [facility]ult [facility] - 01 * Iron profile w/ IBC (02/26/2025 2:00 PM CDT) [facility] Iron Bind.Cap.(TIBC) 367 250 - 450 ug/dL [facility] - 01 UIBC 277 111 - 343 ug/dL [facility] - 01 Iron 90 38 - 169 ug/dL [facility] - 01 Iron saturation 25 15 - 55 % [facility] - 01 Blood 02/26/2025 2:00 PM CDT 02/26/2025 Narrative [facility] - 02/27/2025 8:11 AM CDT Performed at: [address] [place] [id number] Physical Scientist: Brodie Batista PhD, Phone: [phone] Sim Garza LAB BLOOD ORDERABLES Final R esult Performing Organization Address [facility] Co de Phone Number [facility] - * Reticulocyte Count (02/26/2025 2:00 PM CDT) [facility] Reticulocyte Count 1.6 0.6 - 2.6 % [facility] - 01 Blood 02/26/2025 2:00 PM CDT 02/26/2025 Narrative [facility] - 02/27/2025 7:09 AM CDT Performed at: [address] [place] [id number] Physical Scientist: Brodie Batista PhD, Phone: [phone] Sim Garza DO LAB BLOOD ORDERABLES Final R esult Performing Organization Address City/[facility]/ZIP Co de Phone Number [facility] - * Folate (02/26/2025 2:00 PM CDT) [facility] Folate 4.6 >3.0 ng/mL [facility] - 01 Comment: A serum folate concentration of less than 3.1 ng/mL is considered to represent clinical deficiency. Blood 02/26/2025 2:00 PM CDT 02/26/2025 Narrative [facility] - 02/27/2025 8:11 AM CDT Performed at: [address] [place] [id number] Physical Scientist: Brodie Batista PhD, Phone: [phone] Sim Garza LAB BLOOD ORDERABLES Final R esult Performing Organization Address [facility] de Phone Number [facility] - 01 * Ferritin (02/26/2025 2:00 PM CDT) [facility] Ferritin 72 30 - 400 ng/mL [facility] - 01 Blood 02/26/2025 2:00 PM CDT 02/26/2025 Narrative [facility] - 02/27/2025 8:11 AM CDT Performed at: [address] [place] [id number] Physical Scientist: Brodie Batista PhD, Phone: [phone] Sim Garza [facility] BLOOD ORDERABLES Final R esult Performing Organization Address [facility] de Phone Number [facility] - * Vitamin B12 (02/26/2025 2:00 PM CDT) [facility] Vitamin B12 682 232 - 1,245 pg/mL [facility] - 01 Blood 02/26/2025 2:00 PM CDT 02/26/2025 Narrative [facility] - 02/27/2025 8:11 AM CDT Performed at: [address] [place] [id number] Physical Scientist: Brodie Batista PhD, Phone: [phone] Sim Garza LAB BLOOD ORDERABLES Final R esult Performing Organization Address [facility] de Phone Number [facility] - 01 * (ABNORMAL) CBC with auto differential (02/21/2025 1:51 PM CDT) [facility] WBC 1.3(LL) 3.4 - 10.8 x10E3/uL [facility] - 01 RBC 4.11(L) 4.14 - 5.80 x10E6/uL [facility] - 01 Comment: Polychromasia present Ovalocytes present. Hgb 12.9(L) 13.0 - 17.7 g/dL [facility] - 01 Hct 38.6 37.5 - 51.0 % [facility] - 01 MCV 94 79 - 97 fL [facility] - 01 MCH 31.4 26.6 - 33.0 pg [facility] - 01 MCHC 33.4 31.5 - 35.7 g/dL [facility] - 01 Rdw 14.2 11.6 - 15.4 % [facility] - 01 Platelets 212 150 - 450 x10E3/uL [facility] - 01 Neutrophils pct 18 Not Estab. % [facility] - 01 Lymphs pct 49 Not Estab. % [facility] - 01 Monocytes pct 30 Not Estab. % [facility] - 01 Eosinophils pct 2 Not Estab. % [facility] - 01 Basophil pct 1 Not Estab. % [facility] - 01 Neutrophil abs 0.2(<) 1.4 - 7.0 x10E3/uL [facility] - 01 Lymphs (Absolute) 0.6(L) 0.7 - 3.1 x10E3/uL [facility] - 01 Monocyte abs 0.4 0.1 - 0.9 x10E3/uL [facility] - 01 Eosinophils, abs 0.0 0.0 - 0.4 x10E3/uL [facility] - 01 Basophils, abs 0.0 0.0 - 0.2 x10E3/uL [facility] - 01 Immature Granulocytes 0 Not Estab. % [facility] - 01 Immature Grans (Abs) 0.0 0.0 - 0.1 x10E3/uL [facility] - 01 Hematology Comments: Note: [facility] - 01 Comment:Verified by microsco pic examination. Blood 02/21/2025 1:51 PM CDT 02/21/2025 Narrative [facility] - 02/22/2025 4:11 PM CDT Performed at: 01 - [facility] [address] [id number] Physical Scientist: Brodie Batista PhD, Phone: [phone] Specimen Comment: Called/faxed to ELSY LEDEZMA RN on 02/22/2025 at 10:50 ET for Specimen Comment: test Neutrophils (Absolute) us Sim Garza DO LAB BLOOD ORDERABLES Edited Result - Final Performing Organization Address [facility] Co de Phone Number [facility] - 01 * URINALYSIS (01/29/2025 1:18 PM CDT) us Historical Provider LAB BLOOD ORDERABLES Marce l Result EXTERNAL LAB * CMP (01/29/2025 1:18 PM CDT) Historical Provider LAB BLOOD ORDERABLES Marce l Result Performing Organization Address [facility] Co de Phone Number EXTERNAL LAB from Last [address] [place] [address] [place] [address] [place] [address] [facility] [facility] Care Teams Level Vial Inspector And Tester Relationship Specialty Start Date End Date Apolonia Patel MD PCP - General 01/28/18 Sim Garza DO [address] [place] [id number] Medical Oncologist/Analytical Sciences Director Hematology and Oncology 11/29/20 Farrah Santoro MD [address] [place] [address] [id number] Consulting Physician Rheumatology 08/01/24
--- OUTSIDE RECORDS SUMMARY | 2025-04-17 10:38 | XMS_ITS | Patient Health Record ---
Author Organization [facility] Address [address] [facility] [address] [place] [address] Care Team Providers Care Health Care / Medical Job Titles Name Role Phone Amanda DAVE, [place] Primary Care Provider Unavailable Candi Girard Unavailable [phone] Robert Perez Unavailable [phone] Mamta Gorman Unavailable [phone] Allergies No Known Allergies Reason For Referral No Information Medications Medication SIG (Take, Route, Frequency, Duration) Notes Start Date End Date Status Tremfya 200 MG/2ML 2 mL Subcutaneous Active Prazosin HCl 1 MG 1 capsule at bedtime Orally Once a day; Duration: 30 days Active DULoxetine HCl 60 MG 2 capsules Oral griselda ly; Duration: 30 days Active busPIRone HCl 10 MG 1 tablet in the morning and 2 tablets at bedtime Orally Twice a day; Duration: 30 days Active Clobetasol Propionate 0.05 % External 12/20/2023 Not-Taking Clobetasol Propionate 0.05% External 12/20/2023 Active Tadalafil 5 MG 1 tablet as needed Orally Once a day Not-Taking Tamsulosin HCl 0.4 MG TAKE 1 CAPSULE BY MOUTH ONCE DAILY AT BEDTIME Oral; Duration: 90 Days Active Folic Acid 1 MG Oral; Duration: 90 Days Active traZODone HCl 50 MG 1 tablet at bedtime Orally Once a day; Duration: 30 days As needed Active Hydrocortisone 2.50% External 12/20/2023 Not-Taking Cholecalciferol 1.25 MG (41482 UT) Oral 12/20/2023 Active Tacrolimus 0.1 % External 12/20/2023 No t-Taking Immunizations Vaccine Route Administration Date Status Commraudel ramos [employer] Covid-19 Vac cine 2nd dose Unknown 12/17/2020 Administered Pfizer [employer] Covid-19 Vac cine 2nd dose Unknown 01/08/2021 Administered Pfizer [employer] Covid-19 Vac cine 2nd dose Unknown 07/23/2021 Administered Novel [id number], preservative free Unknown 08/12/2018 Administered Moderna Covid-19 Vaccine 1st dose Unknown 02/04/2022 Ad ministered Influenza, unspecified formulation Unknown 07/18/2019 A dministered Influenza, unspecified formulation Unknown 08/01/2020 A dministered Influenza, injectable, MDCK, preservative free Unknown 07/24/2020 Administered Social History Tobacco Use: Social History Observation Description Date Details (start date - stop date) Current Smoker NA - NA Sex Assigned At : Social History Observation Description Sex Assigned At Male Household Question Answer Notes Marital status: Tobacco Control (Standard) Question Answer Notes Tobacco use: Current smoker AUDIT-C (Standard) Question Answer Notes Did you have a drink containing alcohol in the p ast year? No Section Notes: Social History Substance Use Do [...] Do you have a medical power of tax attorney?: No Public Health and Travel Have you [...] Do you have a medical power of tax attorney?: No Gender Identity and LGBTQ Identity Sexual [...] Do you have a medical power of tax attorney?: No Gender Identity and LGBTQ Identity Sexual orientation: Straight or heterosexual Problems Problem Type SNOMED Code ICD Code Onset Dates Problem Status W/U Status Risk Notes Problem Vitamin D deficiency (90086801) Vitamin D deficiency, unspecified (E55.9) 4 Active confirmed Problem Mild recurrent major depression (45285560) Major depressive disorder, recurrent, mild (F33.0) 4 Active confirmed Problem Recurrent major depression in remission (76643749) Major depressive disorder, recurrent, in partial remission (F33.41) Active confirmed Problem Generalized anxiety disorder (55384464) Generalized anxiety disorder (F41.1) 4 Active confirmed Problem Posttraumatic stress disorder (28837384) Post-traumatic stress disorder, chronic (F43.12) 4 Active confirmed Problem Insomnia disorder related to another mental disorder (48837444) Insomnia due to other mental disorder (F51.05) Active confirmed Problem Tobacco use (969216168) Nicotine use (Z72.0) Active confirmed Vital Signs Heart Rate 83 /min 03/09/2025 Height-cm 177.80 cm 03/09/2025 Blood pressure diastolic 73 mm Hg 03/09/2025 Weight-kg 89.81 kg 03/09/2025 Height 70.00 in 03/09/2025 Blood pressure systolic 128 mm Hg 03/09/2025 Weight 198 lbs 03/09/2025 BMI 28.41 kg/m2 03/09/2025 Encounters Encounter Location Date Provider Diagnosis [facility] [address] [place] [address] 06/29/2024 Mamta Gorman Major depressive disorder, recurrent, mild F33.0 ; Generalized anxiety disorder F41.1 ; Post-traumatic stress disorder, chronic F43.12 and Vitamin D deficiency, unspecified E55.[address] [address] 07/27/2024 Mamta Gorman Major depressive disorder, recurrent, mild F33.0 ; Generalized anxiety disorder F41.1 ; Post-traumatic stress disorder, chronic F43.12 and Vitamin D deficiency, unspecified E55.[address] [address] 10/27/2024 Candi Girard [address] [address] 10/30/2024 Candi Girard Post-traumatic stres s disorder, chronic F43.12 ; Insomnia due to other mental disorder F51.05 ; Generalized anxiety disorder F41.1 ; Major depressive disorder, recurrent, mild F33.0 and Vitamin D deficiency, unspecified E55.[address] [address] 12/11/2024 Candi Girard Post-traumatic stres s disorder, chronic F43.12 ; Insomnia due to other mental disorder F51.05 ; Generalized anxiety disorder F41.1 ; Major depressive disorder, recurrent, mild F33.0 and Vitamin D deficiency, unspecified E55.[address] [address] 02/21/2025 Robert Perez Encounter for screening for cardiovascular disorders Z13.6 ; Depression, major, recurrent, moderate F33.1 ; Generalized anxiety disorder F41.1 ; Chronic post-traumatic stress disorder F43.12 ; Negative depression screening Z13.31 and Nicotine use Z72.[address] [address] 03/07/2025 Robert Perez Encounter for screening for depression Z13.31 ; Recurrent major depressive episodes, moderate F33.1 ; Generalized anxiety disorder F41.1 and Nicotine use Z72.0 [facility] [place] [address] 03/09/2025 Candi Girard Major depressive disorder, recurrent, in partial remission F33.41 ; Post-traumatic stress disorder, chronic F43.12 ; Generalized anxiety disorder F41.1 ; Insomnia due to other mental disorder F51.05 ; Nicotine use Z72.0 ; Encounter for screening for cardiovascular disorders Z13.6 and Negative depression screening Z13.31 [facility] [employer] [address] [facility] [address] [place] [address] 03/28/2025 Robert Perez Negative depression screening Z13.31 ; Depression, major, recurrent, moderate F33.1 ; Nicotine use Z72.0 and Generalized anxiety disorder F41.1 [facility] [employer] [address] [facility] [address] [place] [address] 04/11/2025 Robert Perez Negative depression screening Z13.31 ; Depression, major, recurrent, moderate F33.1 ; Generalized anxiety disorder F41.1 and Nicotine use Z72.0 [facility] [employer] [facility] [address] [place] [address] 01/26/2025 Candi Girard Assessments Encounter Date Diagnosis (ICD Code) Assessment Notes Treatment Notes Treatment Clinical Notes Section Notes 06/29/2024 Major depressive disorder, recurrent, mild (ICD-10 - F33.0) cont duloxetine 120mg daily stable, no longer taking prazosin d/t urology concern for interaction with arcenio wants to taper quetiapine, discuss r/b/se, discontinuation [...] so took off and did buspar 10/30/2024 Post-traumatic stress disorder, chronic (ICD-10 - F43.12) Insomnia [...] bedtime makes a difference Depression - mood okay, relatively stable in light of sleep concerns [...] bedtime makes a difference Depression - mood okay, relatively stable in light of sleep concerns presently Plan: - Continue duloxetine 60 mg 2 tablets daily Hypotension - Blood pressure 90/60, reports occasional lightheadedness and dizziness Plan: - Monitor blood pressure - Discuss with urologist about adjusting prostate medications or procedures Follow-up in 4 to 6 weeks to assess sleep improvement and any updates from neurology 12/11/2024 Post-traumatic stress disorder, chronic (ICD-10 - F43.12) Insomnia [...] in 3 months, sooner if concerns arise 02/21/2025 Encounter for screening for cardiovascular disorders (ICD-10 - Z13.6) 02/21/2025 Depression, major, recurrent, moderate (ICD-10 - F33.1) 03/07/2025 Encounter for screening for depression (ICD-10 - Z13.31) 03/07/2025 Recurrent major depressive episodes, moderate (ICD-10 - F33.1) 03/09/2025 Major depressive disorder, recurrent, in partial remission (ICD-10 - F33.41) 03/09/2025 Post-traumatic stress disorder, chronic (ICD-10 - F43.12) 03/28/2025 Depression, major, recurrent, moderate (ICD-10 - F33.1) 03/28/2025 Negative depression screening (ICD-10 - Z13.31) 04/11/2025 Depression, major, recurrent, moderate (ICD-10 - F33.1) 04/11/2025 Negative depression screening (ICD-10 - Z13.31) 04/11/2025 Generalized anxiety disorder (ICD-10 - F41.1) 03/28/2025 Nicotine use (ICD-10 - Z72.0) 03/09/2025 Generalized anxiety disorder (ICD-10 - F41.1) 03/07/2025 Generalized anxiety disorder (ICD-10 - F41.1) 12/11/2024 Insomnia due to other mental disorder [...] in 3 months, sooner if concerns arise 02/21/2025 Generalized anxiety disorder (ICD-10 - F41.1) 10/30/2024 Generalized anxiety disorder (ICD-10 - F41.1) [...] bedtime makes a difference Depression - mood okay, relatively stable in light of sleep concerns [...] increase buspirone 10mg qam and 20mg qhs 06/29/2024 Post-traumatic stress disorder, chronic (ICD-10 - F43.12) stopped prazosin decrease quetiapine to 25mg qhs and stop when able (adjust to sleep etc; can break to 12.5mg as well) *SEND TO [facility]-prefers their [facility] -can use benadryl, unisom short term if trouble sleeping prioritize good sleep hygiene 07/27/2024 Post-traumatic stress disorder, chronic (ICD-10 - F43.12) no [...] bedtime makes a difference Depression - mood okay, relatively stable in light of sleep concerns [...] in 3 months, sooner if concerns arise 02/21/2025 Chronic post-traumatic stress disorder (ICD-10 - F43.12) 03/09/2025 Insomnia due to other mental disorder (ICD-10 - F51.05) 03/28/2025 Generalized anxiety disorder (ICD-10 - F41.1) 03/09/2025 Nicotine use (ICD-10 - Z72.0) 04/11/2025 Nicotine use (ICD-10 - Z72.0) 03/07/2025 Nicotine use (ICD-10 - Z72.0) 12/11/2024 Major depressive disorder, recurrent, mild (ICD-10 [...] bedtime makes a difference Depression - mood okay, relatively stable in light of sleep concerns [...] in 3 months, sooner if concerns arise 02/21/2025 Negative depression screening (ICD-10 - Z13.31) 03/09/2025 Encounter for screening for cardiovascular disorders (ICD-10 - Z13.6) 02/21/2025 Nicotine use (ICD-10 - Z72.0) 03/09/2025 Negative depression screening (ICD-10 - Z13.31) 03/07/2025 Other Client participated in individual psychotherapy (CBT/Supportive) related to their hx of depression and anxiety. Based on today's session continued psychotherapy is recommended with no changes to treatment plan. Client presented to session well groomed and fully oriented with no risk of harm to self or others. Client verbal and engaged through out session and presented with sad affect. Reported upon presentation that he has been not too bad since last seen on 02.21.2025. Added that he has not blown up at in the last three weeks since last seen but has been annoyed with her. Noted that the has been telling self to slow down and asking self whether this worth getting angry about. Session accordingly focused on establishing rapport, trust and helping client understand the connection between thoughts feelings and behaviors.Session also introduced client to an emotional funnel and how anger is a cover up emotion for unwanted and uncomfortable emotions. Client able to identify with some difficulty emotions that he is uncomfortable feelings. Conceded that anger gives him the illusion of power and control while other uncomfortable emotions are helless feelings. Client receptive to session feedback. Next session in two weeks. 03/09/2025 Addison Husain is a male patient with a history of psoriasis, psoriatic arthritis, and mental health concerns, presenting with improved mood and functionality after starting Tremfya treatment in November. Depression Assessment: Patient reports improved mood, which he attributes to the effectiveness of Tremfya in managing his psoriasis and psoriatic arthritis. This has allowed him to engage in more activities, positively impacting his mental state. He denies current suicidal ideation. Plan: - Continue duloxetine 60 mg, 2 capsules daily Sleep Disturbance Assessment: Patient reports generally good sleep initiation but occasional early awakening with difficulty returning to sleep. This leads to daytime fatigue. A sleep study conducted approximately 2 years ago ruled out sleep apnea. Plan: - Initiate prazosin 1 mg at bedtime for nightmares and sleep improvement - Continue trazodone 50 mg at bedtime - Monitor for improvement in sleep quality and nightmares Anxiety Assessment: Patient reports past issues with irritability and being easily annoyed. He is currently addressing these concerns with his therapist, Robert. Plan: - Continue buspirone 10 mg, 1 tablet in the morning, 2 tablets at bedtime - Encourage ongoing work with therapist to address irritability Tobacco Use Assessment: Patient reports recent resumption of smoking but expresses intention to quit. Plan: - Provide smoking cessation counseling and support - Discuss potential smoking cessation aids if patient is interested 03/28/2025 Other Client participated in individual psychotherapy (CBT/Supportive) related to their hx of depression and anxiety. Based on today's session continued psychotherapy is recommended with no changes to treatment plan. Client presented to session well groomed and fully oriented with no risk of harm to self or others. Client verbal and engaged through out session and presented with sad affect. Reported upon presentation that he is tired today due to not having slept very well last night. Added that he got frustrated and shut down this past Wednesday. Explained that he became frurstrated when attempting to do something on the computer and was unable to do it. Conceded that he struggles feeling helpless and when he does will shut down and get angry. Client admitted that he needs to examine what he expects of himself. Remainder of session client spoke about his marriage and frequent thoughts of getting a divorce. Noted that he does not like the way talks to him, she makes me feel dumb. Moreover conceded that he has felt imasculated by throughout their marriage. Further admitted that reminds him of his mother and how she talked to him while he was growing up. Client encouraged to be honest with about he feels and use I statements. Client introduced to The Four Agreements by Lloyd Aviles. Client receptive to session feedback. Next session in four weeks. 04/11/2025 Other Client participated in individual psychotherapy (CBT/Supportive) related to their hx of depression and anxiety. Based on today's session continued psychotherapy is recommended with no changes to treatment plan. Client presented to session well groomed and fully oriented with no risk of harm to self or others. Client verbal and engaged through out session and presented with sad affect. Reported upon presentation that he is a little anxious and concerned with the state of the world. Added however that his mood has been good with no depression and his mood has been pretty positive since last session on 03.28.2025. Further shared that relationship with has been better and they were able to work on a couple of projects. Expressed concern however over 's perfectionist tendencies when doing things together. Focus of session on relationship with his father, current and past, and impact that it has had on his depression and anxiety. Admitted that he is still angry at father inspite of father having apologized to him several years ago. Noted that he has gone thru different phases with father through out his life, eg used to be afraid of him. Client when asked what he wants from his father was unable to answer. Session also addressed relationship client has had with himself throughout his life. Stated that he sees self as mentally slow. Client receptive to session feedback. Next session in two weeks. Plan Of Treatment Next Appt Details Provider Name:Robert Mcnally Manish lopez, 04/25/2025 11:00:00 AM, [address], [facility], [place], [address], Provider Name:Robert Mcnally Manish lopez, 05/09/2025 11:00:00 AM, [address], [facility] [address], [place], [address], Provider Name:Robert Mcnally Manish lopez, 05/23/2025 11:00:00 AM, [address], [facility] [address], [place], [address], Provider Name:Candi bernardo, 06/05/2025 11:00:00 AM, [address], [place] [address], [place], [address], Insurance Providers Payer Name Payer Address Payer Phone Subscriber Number Group Number Insured Name Patient Relationship to Insured Coverage Start Date Coverage End Date [employer] Re[employer]/ [employer]vantage - [employer] [address] [place] [phone] [id number] HANNY HUSAIN Self - patient is the insured [place] [address] [place] [address] [id number] HANNY HUSAIN Self - patient is the insured Medical (General) History Medical History History ICD Code Past Psychiatric History: An xiety Disorder,PTSD,Psychotic Episode,Major Depressive Episode undefined Obesity Psoriasiform dermatitis Vitamin D deficiency Surgical History Surgery Date(Month/Year) Neurosurgery 04/17/1969
--- OUTSIDE RECORDS SUMMARY | 2025-04-17 10:38 | XMS_ITS | Referral Summary ---
Author Organization [facility] Address [address] [place] [address] Care Team Providers Care Caustic Plant Worker Name Role Phone Apolonia Patel MD Primary Care Provider Sim Garza DO Unavailable [phone] Farrah Santoro MD Unavailable [phone] Encounters Date Type Department Care Team Description 03/30/2025 Telephone [facility] Oncology [facility] Floor 1, [address] [place] [address] Francisco Snow, LOWELL 02/28/2025 Telephone [facility] Oncology [address] [place] [address] [address] [place] [address] Holly Parekh, LOWELL 02/27/2025 Results Follow-Up [facility] Oncology [address] [place] [address] [address] [place] [address] Holly Parekh, LOWELL Iron profile w/ IBC, Ferritin, Reticulocyte Count, Additional followed-up results: 3 02/23/2025 10:15 AM CDT Office Visit [facility] Oncology [address] [place] [address] [address] [place] [address] Sim Garza, Pancytopenia (HCC) (Primary Dx); Other neutropenia 02/22/2025 Telephone [facility] Oncology [address] [place] [address] [address] [place] [address] Elsy Ledezma RN from Last 3 Months Allergies Active Allergy Reactions Criticality Noted Date [...] Date Diagnosed Date Pancytopenia 05/28/2022 Neutropenia 07/26/2018 Immunizations Immunization Administration Dates Next Due Influenza, Unspecified 08/01/2020,07/18/2019,02/2018 [employer] SARS-CoV-2 Monovalent Vaccination (12+ Yrs) PURPLE 01/12/2021,12/22/2020 ZOSTER LIVE 10/22/2017,05/21/2017 Social History Tobacco Use Types Packs/Day Years [...] on file Legal 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 Gender Identity Not on file Sexual Orientation Not on file Last Filed Vital Signs Vital Sign Reading [...] Body Mass Index 30.36 12/01/2024 10:19 AM MANAGER SOFTWARE Plan of Treatment Not on file Procedures Procedure Name Priority Date/Time Associated Diagnosis [...] - 03/30/2025 6:09 AM CDT Performed at: [address] [id number] Patient Care Manager: Brodie Batista PhD, Phone: [phone] Specimen Comment: Called/faxed to Francisco Gwendolyn on 03/30/2025 at 06:03 ET for Specimen Comment: test Neutrophils (Absolute) Sim Garza LAB BLOOD ORDERABLES Final R esult Performing Organization Address [facility] [place]/ZIP Co de Phone Number [facility] - * Iron profile w/ IBC (02/26/2025 2:00 PM CDT) [facility] Iron Bind.Cap.(TIBC) 367 250 - 450 ug/dL [facility] - 01 UIBC 277 111 - 343 ug/dL [facility] - 01 Iron 90 38 - 169 ug/dL [facility] - 01 Iron saturation 25 15 - 55 % [facility] - 01 Blood 02/26/2025 2:00 PM CDT 02/26/2025 Narrative [facility] - 02/27/2025 8:11 AM CDT Performed at: [address] [id number] Patient Care Manager: Brodie Batista PhD, Phone: [phone] Sim Garza DO LAB BLOOD ORDERABLES Final R esult Performing Organization Address [facility] [place]/ZIP Co de Phone Number [facility] - * Reticulocyte Count (02/26/2025 2:00 PM CDT) [facility] Reticulocyte Count 1.6 0.6 - 2.6 % [facility] - Blood 02/26/2025 2:00 PM CDT 02/26/2025 Narrative [facility] - 02/27/2025 7:09 AM CDT Performed at: [address] [place] [id number] Patient Care Manager: Brodie Batista PhD, Phone: [phone] Sim Garza DO LAB BLOOD ORDERABLES Final R esult Performing Organization Address [facility] [place] de Phone Number [facility] * Folate (02/26/2025 2:00 PM CDT) [facility] Folate 4.6 >3.0 ng/mL [facility] - Comment: A serum folate concentration of less than 3.1 ng/mL is considered to represent clinical deficiency. Blood 02/26/2025 2:00 PM CDT 02/26/2025 Narrative [facility] - 02/27/2025 8:11 AM CDT Performed at: [address] [place] [id number] Patient Care Manager: Brodie Batista PhD, Phone: [phone] Sim Garza DO LAB BLOOD ORDERABLES Final R esult Performing Organization Address [facility] Co de Phone Number [facility] - * Ferritin (02/26/2025 2:00 PM CDT) [facility] Ferritin 72 30 - 400 ng/mL [facility] - Blood 02/26/2025 2:00 PM CDT 02/26/2025 Narrative [facility] - 02/27/2025 8:11 AM CDT Performed at: [address] [place] [id number] Patient Care Manager: Brodie Batista PhD, Phone: [phone] Sim Garza LAB BLOOD ORDERABLES Final R esult Performing Organization Address [facility]/ZIP Co de Phone Number [facility] - * Vitamin B12 (02/26/2025 2:00 PM CDT) [facility] Vitamin B12 682 232 - 1,245 pg/mL [facility] - 01 Blood 02/26/2025 2:00 PM CDT 02/26/2025 Narrative [facility] - 02/27/2025 8:11 AM CDT Performed at: [address] [place] [id number] Patient Care Manager: Brodie Batista PhD, Phone: [phone] Sim Garza LAB BLOOD ORDERABLES Final R [facility] Performing Organization Address [facility] Co de Phone Number [facility] - * (ABNORMAL) CBC with auto differential (02/21/2025 1:51 PM CDT) [facility] WBC 1.3(LL) 3.4 - 10.8 x10E3/uL [facility] [...] - 02/22/2025 4:11 PM CDT Performed at: [facility] [id number] Patient Care Manager: Brodie Batista PhD, Phone: [phone] Specimen Comment: Called/faxed to ELSY LEDEZMA RN on 02/22/2025 at 10:50 ET for Specimen Comment: test Neutrophils (Absolute) Sim Garza DO LAB BLOOD ORDERABLES Edited Result - Final Performing Organization Address [facility] [place]/ZIP Co de Phone Number [facility] - 01 * URINALYSIS (01/29/2025 1:18 PM CDT) Historical Provider MD LAB BLOOD ORDERABLES Marce l Result EXTERNAL LAB * CMP (01/29/2025 1:18 PM CDT) Historical Provider MD LAB BLOOD ORDERABLES Marce l Result Performing Organization Address [facility]/ZIP Co de Phone Number EXTERNAL LAB from Last 3 Mon[id number] [place] [id number] [place] [phone] [place] [address] HEALTHCARE Care Teams Caustic Plant Worker Relationship Specialty Start Date End Date Apolonia Patel MD PCP - General 01/28/18 Sim Garza DO [address] [place] [id number] Medical Oncologist/Explosive Operator Hematology and Oncology 11/29/20 Farrah Santoro MD [address] [place] [phone] Consulting Physician Rheumatology 08/01/24
--- OUTSIDE RECORDS SUMMARY | 2025-04-17 10:38 | XMS_ITS | Clinical Summary ---
Author Organization [facility] Address [address] [place] [address] Care Team Providers Care Outer Diameter Grinder Tool Name Role Phone Unknown, Provider Primary Care Provider Unavaila ble Source Comments [facility],non-owned Affiliates and Associated Physician Practices is amultiple site organization consisting of ambulatory clinics and hospital sitesin [place], [place], [place] and [place]. This disclosure is being madepursuant to the Care Everywhere program and may not contain all information available regarding this patient. 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
--- OUTSIDE RECORDS SUMMARY | 2025-04-17 10:39 | XMS_ITS | Encounter Summary ---
Author Organization [facility] Address [address] [place] [address] Phone Care Team Providers Care Hard Candy Batch Mixer Name Role Phone Apolonia Patel MD Primary Care Provider Sim Garza DO Unavailable [phone] Farrah Santoro MD Unavailable [phone] Encounter Details Date Type Department Care Team (Latest Contact Info) Description 02/27/2025 Results Follow-Up [facility] Oncology [address] [place] [address] [address] [place] [address] Holly Parekh RN Iron profile w/ IBC, Ferritin, Reticulocyte Count, Additional followed-up results: 3 Social History Tobacco Use Types Packs/Day Years Used Date Smoking Tobacco: Every Day Cigarettes 0.2 0.4 Started: 11/26/2024; Last attempted to quit: 04/26/2020 Smokeless Tobacco: Never AUDIT-C Answer Date Recorded Q1: How often [...] on file 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 [address] Consulting Physician Rheumatology 08/01/24 documented as of this encounter
--- OUTSIDE RECORDS SUMMARY | 2025-04-17 10:39 | XMS_ITS | Clinical Summary ---
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
[2025-04-17 10:55] LABS: Hematocrit 37.8 % (42.0-52.0); Hemoglobin 12.9 g/dL (14.0-18.0); Mean Corpuscular HGB Conc 34.1 g/dl (32-36); Mean Corpuscular Hemoglobin 31.6 pg (26-34); Mean Corpuscular Volume 92.6 fl (80-100); Platelet Count Result 189 k/mm3 (150-375); Red Blood Count 4.08 M/mm3 (4.6-6.20)
[2025-04-17 11:01] LABS: Add Urine Microscopic? NO; Appearance Urine Clear (Clear); Glucose Urine UA Negative (Negative); Leukocyte Esterase Ur Negative LEU/UL (Negative); Nitrate Urine Negative (Negative); Specific Grav Ur 1.013 (1.001-1.035)
[2025-04-17 11:17] LABS: Alanine Aminotransferase 20 U/L (6-50); Albumin Level 4.2 g/dL (3.5-5.1); Alkaline Phosphatase 62 U/L (38-126); Anion Gap 8 mmol/L (4-12); Aspartate Amino Transferase 27 U/L (17-59); Bilirubin,Total 1.0 mg/dL (0.2-1.3); Blood Urea Nitrogen 16 mg/dL (9-20); CRP. < 0.5 mg/dL (<1.0); Calcium 9.5 mg/dL (8.4-10.2); Carbon Dioxide 29 mmol/L (22-30); Chloride 102 mmol/L (98-107); Estimated Glomerular Filt Rate > 60; Glucose 161 mg/dL (65-110); Potassium 4.2 mmol/L (3.4-5.0); Sodium 139 mmol/L (137-145); Total Protein 6.9 g/dL (6.3-8.2)
[2025-04-17 12:47] LABS: Band Neutrophils Percent 3 % (0-6); Eosinophils Absolute Manual 0.01 K/mm3 (0.02-0.50); Eosinophils Percent Manual 2 % (0-4); Lymphocytes Absolute Manual 0.13 K/mm3 (1.1-4.5); Lymphocytes Percent Manual 15 % (18-44); Monocytes Absolute Manual 0.00 K/mm3 (0.1-0.90); Monocytes Percent Manual 1 % (3-9); Neutrophils Percent Manual 4 % (46-73); Total Cells Counted 25
[2025-04-17 12:48] LABS: Schistocytes None Seen
[2025-04-17 13:49] LABS: White Blood Count 0.9 K/mm3 (4.5-10.0)
[2025-04-17 13:51] LABS: Neutrophils Absolute Manual 0.06 K/mm3 (1.3-6.7)
== END 2025-04-17 10:25 | disposition home or self-care (01) ==
LOC: ANHLAB 10:27
PROVIDERS: PCP Family Medicine; Visit Provider Internal Medicine
DX: L40.9 Psoriasis, unspecified (principal); Z79.899 Other long term (current) drug therapy
CPT/HCPCS: 36415; 80053; 81003; 84100; 85025; 85652; 86140

== ENCOUNTER 2025-05-04 13:29 | Outpatient (CLI) | payer OTHER, SELFPAY ==
--- NOTE | ~2025-05-04 | CT_ITS ---
CT Scan of the Chest without Contrast: Clinical Indication: Lung cancer screening, nicotine dependence Technique: Contiguous sections were acquired throughout the chest without intravenous contrast. Dose reduction technique was used on this scan by utilizing automated exposure control and iterative recon struction technique. The dose-length product (DLP) was 132.93 mGy-cm. Findings: There is no evidence of any significant mediastinal, hilar or axillary lymphadenopathy. The mediastin al soft tissues appear normal. There is no evidence of pleural or pericardial effusion. The lungs are clear. No pulmonary nodules or infiltrates are noted. Images through the upper abdomen reveal no abnormalities. Impression: Lung RADS 1: Negative. 12 month follow-up screening CT advised. Reviewed, dictated and finalized at location . Impression: Lung RADS 1: Negative. 12 month follow-up screening CT advised.
--- OUTSIDE RECORDS SUMMARY | 2025-05-04 13:35 | XMS_ITS | Clinical Summary ---
Author Organization [facility] Address [address] [place] [address] Care Team Providers Care Service Rig Operator Name Role Phone Unknown, Provider Primary Care Provider Unavaila ble Source Comments [facility],non-owned Affiliates and Associated Physician Practices is amultiple site organization consisting of ambulatory clinics and hospital sitesin [place], [place], [place] and [place]. This disclosure is being madepursuant to the Care Everywhere program and may not contain all information available regarding this patient. 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
--- OUTSIDE RECORDS SUMMARY | 2025-05-04 13:36 | XMS_ITS | Patient Health Record ---
Author Organization [facility] Address [address] [facility] [address] [place] [address] Care Team Providers Care Monorail Car Operator Name Role Phone Apolonia Patel MD Primary Care Provider Unavailable Candi Girard Unavailable [phone] Robert Perez Unavailable [phone] Mamta Gorman Unavailable [phone] Allergies No Known Allergies Reason For Referral No Information Medications Medication SIG (Take, Route, Frequency, Duration) Notes Start Date End Date Status Prazosin HCl 1 MG 1 capsule at bedtime Orally Once a day; Duration: 30 days Active DULoxetine HCl 60 MG 2 capsules Oral griselda ly; Duration: 30 days Active traZODone HCl 50 MG 1 tablet at bedtime Orally Once a day; Duration: 30 days As needed Active Hydrocortisone 2.50% External 12/20/2023 Not-Taking Cholecalciferol 1.25 MG (05134 UT) Oral 12/20/2023 Active busPIRone HCl 10 MG 1 tablet in the morning and 2 tablets at bedtime Orally Twice a day; Duration: 30 days Active Clobetasol Propionate 0.05 % External 12/20/2023 Not-Taking Tadalafil 5 MG 1 tablet as needed Orally Once a day Not-Taking Tamsulosin HCl 0.4 MG TAKE 1 CAPSULE BY MOUTH ONCE DAILY AT BEDTIME Oral; Duration: 90 Days Active Tacrolimus 0.1 % External 12/20/2023 No t-Taking Clobetasol Propionate 0.05% External 12/20/2023 Active Folic Acid 1 MG Oral; Duration: 90 Days Active Tremfya 200 MG/2ML 2 mL Subcutaneous Active Immunizations Vaccine Route Administration Date Status Comme nts Influenza, injectable, MDCK, preservative free Unknown 07/24/2020 Administered Influenza, unspecified formulation Unknown 07/18/2019 A dministered Influenza, unspecified formulation Unknown 08/01/2020 A dministered Moderna Covid-19 Vaccine 1st dose Unknown 02/04/2022 Ad ministered Novel [id number], preservative free Unknown 08/12/2018 Administered Pfizer Biontech [...] (Standard) Question Answer Notes Tobacco use: Current every day smoker AUDIT-C (Standard) Question Answer Notes Did [...] Do you have a medical power of meat carver?: No Public Health and Travel Have you [...] Do you have a medical power of meat carver?: No Gender Identity and LGBTQ Identity Sexual [...] Do you have a medical power of meat carver?: No Gender Identity and LGBTQ Identity Sexual orientation: Straight or heterosexual Problems Problem Type SNOMED Code ICD Code Onset Dates Problem Status W/U Status Risk Notes Problem Vitamin D deficiency (67386065) Vitamin D deficiency, unspecified (E55.9) 4 Active confirmed Problem Mild recurrent major depression (88855400) Major depressive disorder, recurrent, mild (F33.0) 4 Active confirmed Problem Recurrent major depression in remission (53686083) Major depressive disorder, recurrent, in partial remission (F33.41) Active confirmed Problem Generalized anxiety disorder (14403820) Generalized anxiety disorder (F41.1) 4 Active confirmed Problem Posttraumatic stress disorder (25748728) Post-traumatic stress disorder, chronic (F43.12) 4 Active confirmed Problem Insomnia disorder related to another mental disorder (05747610) Insomnia due to other mental disorder (F51.05) Active confirmed Problem Tobacco use (971580811) Nicotine use (Z72.0) Active confirmed Vital Signs Heart Rate 83 /min 03/09/2025 Height-cm 177.80 cm 03/09/2025 Blood pressure diastolic 73 mm Hg 03/09/2025 Weight-kg 89.81 kg 03/09/2025 Height 70.00 in 03/09/2025 Blood pressure systolic 128 mm Hg 03/09/2025 Weight 198 lbs 03/09/2025 BMI 28.41 kg/m2 03/09/2025 Encounters Encounter Location Date Provider Diagnosis [facility] [address] [place] [address] 06/29/2024 Mamta Gorman Major depressive disorder, recurrent, mild F33.0 ; Generalized anxiety disorder F41.1 ; Post-traumatic stress disorder, chronic F43.12 and Vitamin D deficiency, unspecified E55.[address] [address] 07/27/2024 Mamta Gorman Major depressive disorder, recurrent, mild F33.0 ; Generalized anxiety disorder F41.1 ; Post-traumatic stress disorder, chronic F43.12 and Vitamin D deficiency, unspecified E55.[address] [address] 10/27/2024 Candi Girard [address] [address] 10/30/2024 Candi Girard Post-traumatic stres s disorder, chronic F43.12 ; Insomnia due to other mental disorder F51.05 ; Generalized anxiety disorder F41.1 ; Major depressive disorder, recurrent, mild F33.0 and Vitamin D deficiency, unspecified E55.9 [facility] [address] 12/11/2024 Candi Girard Post-traumatic stres s disorder, chronic F43.12 ; Insomnia due to other mental disorder F51.05 ; Generalized anxiety disorder F41.1 ; Major depressive disorder, recurrent, mild F33.0 and Vitamin D deficiency, unspecified E55.9 [facility] [address] 02/21/2025 Robert Perez Encounter for screening for cardiovascular disorders Z13.6 ; Depression, major, recurrent, moderate F33.1 ; Generalized anxiety disorder F41.1 ; Chronic post-traumatic stress disorder F43.12 ; Negative depression screening Z13.31 and Nicotine use Z72.0 [facility] [address] 03/07/2025 Robert Perez Encounter for screening for depression Z13.31 ; Recurrent major depressive episodes, moderate F33.1 ; Generalized anxiety disorder F41.1 and Nicotine use Z72.0 [facility] [address] [address] 03/09/2025 Candi Girard Major depressive disorder, recurrent, in partial remission F33.41 ; Post-traumatic stress disorder, chronic F43.12 ; Generalized anxiety disorder F41.1 ; Insomnia due to other mental disorder F51.05 ; Nicotine use Z72.0 ; Encounter for screening for cardiovascular disorders Z13.6 and Negative depression screening Z13.31 [facility] [address] [address] 03/28/2025 Robert Perez Negative depression screening Z13.31 ; Depression, major, recurrent, moderate F33.1 ; Nicotine use Z72.0 and Generalized anxiety disorder F41.1 [facility] [address] 04/11/2025 Robert Perez Negative depression screening Z13.31 ; Depression, major, recurrent, moderate F33.1 ; Generalized anxiety disorder F41.1 and Nicotine use Z72.0 [facility] [address] 04/25/2025 Robert Perez Depression, major, recurrent, moderate F33.1 ; Generalized anxiety disorder F41.1 and Nicotine use Z72.[address] [address] 01/26/2025 Candi Girard Assessments Encounter Date Diagnosis [...] 04/11/2025 Negative depression screening (ICD-10 - Z13.31) 04/25/2025 Generalized anxiety disorder (ICD-10 - F41.1) 04/25/2025 Depression, major, recurrent, moderate (ICD-10 - F33.1) 04/11/2025 Generalized anxiety disorder (ICD-10 - F41.1) [...] break to 12.5mg as well) *SEND TO [employer]-prefers their test eng -can use benadryl, unisom short term if [...] to other mental disorder (ICD-10 - F51.05) 04/25/2025 Nicotine use (ICD-10 - Z72.0) 03/28/2025 Generalized anxiety disorder (ICD-10 - F41.1) [...] session feedback. Next session in two weeks. 04/25/2025 Other Client participated in individual psychotherapy (CBT/Supportive) [...] affect. Reported upon presentation that he is not great and has felt defaeted since last session on 04.11.25. Added that things had been bettter with for the past couple of months but things have returned to how they used to be. Although added that he has not been blowing or being reactionary with . Noted that she has been attending a support group as a result of her father's mental and physical condition. 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 Client admitted that he is done with marriage but is too afraid to make changes and would like to be on his own; but has no idea what he would do. Feels trapped and stagnent. His fear of conflict prevents him from saying and doing what he would like to do. Referenced upcoming trip to visit father on the [facility]. Would like to go alone but is afraid of how would react. Client admitted that his is a lot like his father when he was growing up and has some transference issues. Client receptive to session feedback. Next session in two weeks. Plan Of Treatment Next Appt Details Provider Name:Robert lopez, 05/09/2025 11:00:00 AM, [address], [address], [place], [address], Provider Name:Robert lopez, 05/23/2025 11:00:00 AM, [address], [address], [place], [address], Provider Name:Candi bernardo, 06/05/2025 11:00:00 AM, [address], [address], [place], [address], Insurance Providers Payer Name Payer Address Payer Phone Subscriber Number Group Number Insured Name Patient Relationship to Insured Coverage Start Date Coverage End Date [facility] Medicare Replacement/ [employer]vant[employer] - [employer]mo [address] [place] [phone] [id number] HANNY HUSAIN Self - patient is the insured [place] [address] [place] [address] [id number] HANNY HUSAIN Self - patient is the insured Medical (General) History Medical History History ICD Code Past Psychiatric History: An xiety Disorder,PTSD,Psychotic Episode,Major Depressive Episode undefined Obesity Psoriasiform dermatitis Vitamin D deficiency Surgical History Surgery Date(Month/Year) Neurosurgery 04/17/1969
--- OUTSIDE RECORDS SUMMARY | 2025-05-04 13:36 | XMS_ITS | Clinical Summary ---
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
--- OUTSIDE RECORDS SUMMARY | 2025-05-04 13:36 | XMS_ITS | Referral Summary ---
Author Organization [facility] 2 Address [address] [place] [address] Care Team Providers Care Honey Liquefier Name Role Phone Apolonia Patel MD Primary Care Provider Sim Garza DO Unavailable [phone] Farrah Santoro MD Unavailable [phone] Encounters Date Type Department Care Team Description 04/17/2025 Telephone [facility] On[facility] [address] [place] [address] [address] [place] [address] Holly Parekh RN 04/17/2025 Orders Only [facility] [address] [place] [address] [address] [place] [address] ProviderColton MD 03/30/2025 Telephone [facility] Floor 1, [address] [place] [address] Francisco Snow RN 02/28/2025 Telephone [facility] [address] [place] [address] [address] [place] [address] Holly Parekh RN 02/27/2025 Results Follow-Up [facility] [address] [place] [address] [address] [place] [address] Holly Parekh, LOWELL Iron profile w/ IBC, Ferritin, Reticulocyte Count, Additional followed-up results: 3 02/23/2025 10:15 AM CDT Office Visit [facility] [address] [facility] [address] [place] [address] Sim Garza DO Pancytopenia (HCC) (Primary Dx); Other neutropenia 02/22/2025 Telephone [facility] [address] [facility] [address] [place] [address] Elsy Ledezma RN from Last [...] Used Date Smoking Tobacco: Every Day Cigarettes 0.3 0.4 Started: 11/26/2024; Last attempted to quit: [...] on file 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 Gender Identity Not on file Sexual Orientation [...] Body Mass Index 30.36 12/01/2024 10:19 AM METALS ANALYST Plan of Treatment Not on file Procedures Procedure Name Priority Date/Time Associated Diagnosis Comments CBC WITH AUTO DIFFERENTIAL Routine 04/17/2025 2:44 PM CDT CBC WITH AUTO DIFFERENTIAL Routine 03/29/2025 11:05 [...] 1:51 PM CDT Pancytopenia (HCC) Other neutropenia from Last 3 Months Results * CBC with auto differential (04/17/2025 2:44 PM CDT) Blood us Historical Provider LAB BLOOD ORDERABLES Marce barrientos Result EXTERNAL LAB * (ABNORMAL) CBC with auto differential (03/29/2025 [...] - 03/30/2025 6:09 AM CDT Performed at: [address] [id number] Supervisor Assembly Room: Brodie Batista PhD, Phone: [phone] Specimen Comment: Called/faxed to Francisco Snow on 03/30/2025 at 06:03 ET for Specimen Comment: test Neutrophils (Absolute) us Sim Garza DO LAB BLOOD ORDERABLES Final R esult [facility] - * Iron profile w/ IBC (02/26/2025 2:00 PM CDT) Pathologist [facility] Iron Bind.Cap.(TIBC) 367 250 - 450 ug/dL [facility] - 01 UIBC 277 111 - 343 ug/dL [facility] - 01 Iron 90 38 - 169 ug/dL [facility] - 01 Iron saturation 25 15 - 55 % [facility] - 01 Blood 02/26/2025 2:00 PM CDT 02/26/2025 Narrative [facility] - 02/27/2025 8:11 AM CDT Performed at: [address] [id number] Supervisor Assembly Room: Brodie Batista PhD, Phone: [phone] Sim Garza DO LAB BLOOD ORDERABLES Final R esult Performing Organization Address [facility] Co de Phone Number [facility] - * Reticulocyte Count (02/26/2025 2:00 PM CDT) [facility] Reticulocyte Count 1.6 0.6 - 2.6 % [facility] - Blood 02/26/2025 2:00 PM CDT 02/26/2025 Narrative [facility] - 02/27/2025 7:09 AM CDT Performed at: [address] [id number] Supervisor Assembly Room: Brodie Batista PhD, Phone: [phone] Sim Garza DO LAB BLOOD ORDERABLES Final R esult Performing Organization Address [facility] Co de Phone Number [facility] - * Folate (02/26/2025 2:00 PM CDT) Pathologist [facility] Folate 4.6 >3.0 ng/mL [facility] - Comment: A serum folate concentration of less than 3.1 ng/mL is considered to represent clinical deficiency. Blood 02/26/2025 2:00 PM CDT 02/26/2025 Narrative [facility] - 02/27/2025 8:11 AM CDT Performed at: [address] [id number] Supervisor Assembly Room: Brodie Batista PhD, Phone: [phone] Sim Tyra Garza [facility] BLOOD ORDERABLES Final R esult Performing Organization Address [facility] de Phone Number [facility] - * Ferritin (02/26/2025 2:00 PM CDT) [facility] Ferritin 72 30 - 400 ng/mL [facility] - 01 Blood 02/26/2025 2:00 PM CDT 02/26/2025 Narrative [facility] - 02/27/2025 8:11 AM CDT Performed at: [address] [place] [id number] Supervisor Assembly Room: Brodie Batista PhD, Phone: [phone] Sim Tyra Garza LAB BLOOD ORDERABLES Final R esult Performing Organization Address [facility] de Phone Number [facility] - * Vitamin B12 (02/26/2025 2:00 PM CDT) [facility] Vitamin B12 682 232 - 1,245 pg/mL [facility] - 01 Blood 02/26/2025 2:00 PM CDT 02/26/2025 Narrative [facility] - 02/27/2025 8:11 AM CDT Performed at: [address] [place] [id number] Supervisor Assembly Room: Brodie Batista PhD, Phone: [phone] Sim Tyra Garza LAB BLOOD ORDERABLES Final R esult Performing Organization Address [facility] Co de Phone Number [facility] - * (ABNORMAL) CBC with auto differential (02/21/2025 1:51 PM CDT) [facility] WBC 1.3(LL) 3.4 - 10.8 x10E3/uL [facility] [...] PM CDT Performed at: 01 - [facility] [address] [id number] Supervisor Assembly Room: Brodie Batista PhD, Phone: [phone] Specimen Comment: Called/faxed to ELSY LEDEZMA RN on 02/22/2025 at 10:50 ET for Specimen Comment: test Neutrophils (Absolute) Sim Garza DO LAB BLOOD ORDERABLES Edited Result - Final [facility] - 01 from Last 3 Months Insurance [id number] [place] [address] [id number] [place] [address] [id number] [place] [address] HEALTHCARE Care Teams Honey Liquefier Relationship Specialty Start Date End Date Apolonia Patel MD PCP - General 01/28/18 Sim Garza DO [address] [place] [address] Medical Oncologist/Dike Supervisor Hematology and Oncology 11/29/20 Farrah Santoro MD [address] [place] [address] Consulting Physician Rheumatology 08/01/24
--- OUTSIDE RECORDS SUMMARY | 2025-05-04 13:36 | XMS_ITS | Clinical Summary ---
Author Organization [facility] 2 Address [address] [facility] [place] [address] Care Team Providers Care Traffic Director Name Role Phone Apolonia Patel MD Primary Care Provider Sim Garza DO Unavailable [phone] Farrah Santoro MD Unavailable [phone] Allergies Active Allergy Reactions Criticality Noted Date [...] Type Department Care Team Description 04/17/2025 Telephone [facility] Oncology [address] [place] [address] [address] [place] [address] Holly Parekh RN 04/17/2025 Orders Only [facility] Oncology [address] [place] [address] [address] [place] [address] Colton Hamilton MD 03/30/2025 Telephone [facility] Oncology [facility] Floor 1, [address] [place] [address] Francisco Snow RN 02/28/2025 Telephone [facility] Oncology [address] [place] [address] [address] [place] [address] Holly Parekh RN 02/27/2025 Results Follow-Up [facility] [address] [place] [address] [address] [place] [address] Holly Parekh, LOWELL Iron profile w/ IBC, Ferritin, Reticulocyte Count, Additional followed-up results: 3 02/23/2025 10:15 AM CDT Office Visit [facility] Oncology [address] [place] [address] [address] [place] [address] Sim Garza DO Pancytopenia (HCC) (Primary Dx); Other neutropenia 02/22/2025 Telephone [facility] Oncology [address] [place] [address] [address] [place] [address] Elsy Kauffman, RN from Last 3 Months Immunizations Immunization Administration [...] on file 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 Gender Identity Not on file Sexual Orientation [...] Body Mass Index 30.36 12/01/2024 10:19 AM TINTER PHOTOGRAPH Plan of Treatment Health Maintenance Due Date [...] Additional history exists Influenza Vaccine (#1) 2025 0, 07/24/2020, 07/18/2019, Additional history exists Procedures Procedure [...] ORDERABLES Marce l Result EXTERNAL LAB * (ABNORMAL) CBC with [...] - 03/30/2025 6:09 AM CDT Performed at: [address] [place] [id number] Escrow Processor: Brodie Batista PhD, Phone: [phone] Specimen Comment: Called/faxed to Francisco Snow on 03/30/2025 at 06:03 ET for Specimen Comment: test Neutrophils (Absolute) Sim Garza LAB BLOOD ORDERABLES Final R esult Performing Organization Address [facility] Co de Phone Number [facility] - * Iron profile w/ IBC (02/26/2025 2:00 PM CDT) Iron Bind.Cap.(TIBC) 367 250 - 450 ug/dL [facility] - 01 UIBC 277 111 - 343 ug/dL [facility] - 01 Iron 90 38 - 169 ug/dL [facility] - 01 Iron saturation 25 15 - 55 % [facility] - 01 Blood 02/26/2025 2:00 PM CDT 02/26/2025 Narrative [facility] - 02/27/2025 8:11 AM CDT Performed at: [address] [id number] Escrow Processor: Brodie Batista PhD, Phone: [phone] Sim Garza LAB BLOOD ORDERABLES Final R esult Performing Organization Address [facility] de Phone Number [facility] - * Reticulocyte Count (02/26/2025 2:00 PM CDT) Reticulocyte Count 1.6 0.6 - 2.6 % [facility] - 01 Blood 02/26/2025 2:00 PM CDT 02/26/2025 Narrative [facility] - 02/27/2025 7:09 AM CDT Performed at: [address] [place] [id number] Escrow Processor: Brodie Batista PhD, Phone: [phone] Sim Garza DO LAB BLOOD ORDERABLES Final R esult [facility] - * Folate (02/26/2025 2:00 PM CDT) Folate 4.6 >3.0 ng/mL [facility] - 01 Comment: A serum folate concentration of less than 3.1 ng/mL is considered to represent clinical deficiency. Blood 02/26/2025 2:00 PM CDT 02/26/2025 Narrative [facility] - 02/27/2025 8:11 AM CDT Performed at: [address] [place] [id number] Escrow Processor: Brodie Batista PhD, Phone: [phone] Sim Garza LAB BLOOD ORDERABLES Final R esult Performing Organization Address [facility] Co de Phone Number [facility] - * Ferritin (02/26/2025 2:00 PM CDT) Pathologist [facility] Ferritin 72 30 - 400 ng/mL [facility] - 01 Blood 02/26/2025 2:00 PM CDT 02/26/2025 Narrative [facility] - 02/27/2025 8:11 AM CDT Performed at: [address] [place] [id number] Escrow Processor: Brodie Batista PhD, Phone: [phone] Sim Garza DO LAB BLOOD ORDERABLES Final R esult Performing Organization Address [facility]/ZIP Co de Phone Number [facility] - 01 * Vitamin B12 (02/26/2025 2:00 PM CDT) Pathologist [facility] Vitamin B12 682 232 - 1,245 pg/mL [facility] - 01 Blood 02/26/2025 2:00 PM CDT 02/26/2025 Narrative [facility] - 02/27/2025 8:11 AM CDT Performed at: - [address], [place], [place] [id number] Escrow Processor: Brodie Batista PhD, Phone: [phone] us Sim Garza DO LAB BLOOD ORDERABLES Final R esult [facility] - * (ABNORMAL) CBC with auto differential (02/21/2025 1:51 PM CDT) [facility] WBC 1.3(LL) 3.4 - 10.8 x10E3/uL [...] - 02/22/2025 4:11 PM CDT Performed at: - [facility] [address] [id number] Escrow Processor: Brodie Batista PhD, Phone: [phone] Specimen Comment: Called/faxed to ELSY KAUFFMAN RN on 02/22/2025 at 10:50 ET for Specimen Comment: test Neutrophils (Absolute) Sim Garza DO LAB BLOOD ORDERABLES Edited Result - Final [facility] - from Last 3 Months Insurance [id number] [place] [address] [id number] [place] [address] HEALTHCARE Member Subscriber Plan / Payer (Ef fective 2022-Present) Name:Fortunato Husain Relation to Subscriber:Self Name:Fortunato Husain Payer ID:[id number] (NAIC) Type:MEDICARE RISK OTHER Address: [place] [id number] [facility] Member Subscriber Plan / Payer (Ef fective 2022-Present) Name:Fortunato Husain Relation to Subscriber:Self Name:Fortunato Husain Payer ID:[id number] (NAIC) Type:MEDICARE RISK OTHER Address: [place] [id number] Care Teams Traffic Director Relationship Specialty Start Date End Date Apolonia Patel MD PCP - General 01/28/18 Sim Garza DO [address] [place] [id number] Medical Oncologist/Oil Tanker Captain Hematology and Oncology 11/29/20 Farrah Santoro MD [address] [place] [address] Consulting Physician Rheumatology 08/01/24
== END 2025-05-04 13:30 | disposition home or self-care (01) ==
PROVIDERS: PCP Family Medicine; Visit Provider Family Medicine
DX: Z12.2 Encounter for screening for malignant neoplasm of respiratory organs (principal); Z87.891 Personal history of nicotine dependence
CPT/HCPCS: 71271